=== PATIENT | female | born 1955 | race Caucasian/White ===

== ENCOUNTER 2018-04-01 11:46 | Day surgery (SDC) | payer OTHER ==
[2018-04-01] MEDS ORDERED: Ringers Lactate 1,000 ML IV ONE (12:10)
[2018-04-01] MEDS ORDERED: FENTANYL CITR 100 MCG/2 ML ONE (13:43)
[2018-04-01] MEDS ORDERED: PROPOFOL 200 MG/20 ML VIAL IV ONE ×3 (13:43→14:25)
[2018-04-01] MEDS ORDERED: MIDAZOLAM HCL 2 MG/2 ML INJ ONE (13:44)
[2018-04-01] MEDS ORDERED: LIDOCAINE 2% MPF 5 ML VIAL ONE (13:45)
[2018-04-01] MEDS ORDERED: ONDANSETRON 4 MG/2 ML VIAL ONE (13:45)
[2018-04-01] MEDS ORDERED: NA CHLORIDE 0.9% 2,000 ML ONE (13:51)
[2018-04-01] MEDS ORDERED: LIDOCAINE 1% W/EPI 1:100,000 MDV 50 ML VIAL ONE (13:53)
[2018-04-01] MEDS ORDERED: KETOROLAC 30 MG/ML INJ ONE (14:34)
[2018-04-01 15:08] VITALS: BP 122/63; TEMP 98; O2SAT 100
--- NOTE | 2018-04-02 01:32 | OP ---
Date of Procedure: 04/01/2018 Surgeon: Tara Carrera MD Preoperative Diagnoses: 1.The patient is status post ablation and 2 prior C-sections. 2.Postmenopausal bleeding. Postoperative Diagnoses: 1.The patient is status post ablation and 2 prior C-sections. 2.Postmenopausal bleeding. Procedures Performed: Exam under anesthesia, Pap smear, and hysteroscopy, and D and C. Anesthesia: MAC plus paracervical block. Complications: No complications. Drains: No drains. Condition: The patient's condition is stable. Specimens: Pap smear and endometrial curettings, very scant. Indications: The patient was consented, taken back to the OR, placed in a supine fashion on the oper ating table. After MAC was given, she was placed in dorsal lithotomy position using Umesh stirrups. A speculum was placed to expose the cervix. Pap smear was done and collected. The rest of the vagi na was examined carefully. No evidence of any lesions, bleeding on visual exam or palpation. Anterior lip was injected with 1% lidocaine mixed with 1:100,000 epinephrine, 10 mL was given here an d anterior lip grasped with 2 Allis clamps. Cervix at the external os opened up with the help of a h emostat then direct hysteroscopy with a SlimLine hysteroscope, 30-degree lens and normal saline were used. After passing through the cervical canal at the top, there were adhesions and these were caref ully traversed leading into the uterine cavity. The cavity appeared to be very narrowed. 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 Curettings were performed and they were handed off for permanent pathology. No complications or drains. The patient's condition was stable. She was recovered from anesthesia in the OR and taken to PACU in stable condition. Instrument, needle, a nd sponge counts were correct. SK/MODL Voice ID: [id number] Report ID: [id number]
--- OUTSIDE RECORDS SUMMARY | 2018-04-02 17:15 | XMS REPORT | Clinical Summary ---
:1955 Author Organization [facility] Address [address] [place] [address] Care Team Providers Name Role Phone Rosalio Levin MD Primary Care Provider Allergies Active Allergy Reactions Severity Noted Date Comments Morphine Hives 05/23/2016 Medications Medication Sig Dispensed Refills Start Date End Date Status spironolactone Take 25 mg by 0 Active (ALDACTONE) 25 MG tablet mouth daily. metoprolol tartrate Take 25 mg by 0 Active (LOPRESSOR) 25 mg tablet mouth 2 (two) times a day. Active Problems Problem Noted Date Impingement syndrome of right shoulder 05/23/2016 Primary osteoarthritis of left knee 05/23/2016 Family History Medical History Relation Name Comments Glaucoma Father Heart disease Mother Relation Name Status Comments Father Mother Social History Tobacco Use Types Packs/Day Years Used Date Never Smoker Smokeless Tobacco: Never Used Alcohol Use Drinks/Week oz/Week Comments Yes Sex Assigned at Date Recorded Not on file Job Start Date Occupation Industry Not on file Not on file Not on file Travel History Travel Start Travel End No recent travel history available. Last Filed Vital Signs Not on file Plan of Treatment Health Maintenance Due Date Last Done Comments CERVICAL CANCER SCREENING 1977 BREAST CANCER SCREENING 2006 COLON CANCER SCREENING 2006 SHINGLES VACCINES (1 of 2) 2006 INFLUENZA VACCINE 11/11/2017 Results Not on fileafter 03/31/2017 Insurance Payer Benefit Plan / Group Subscriber ID Type Phone Address AETNA AETNA HMO,POS,EPO, MC/EC xxxxxxxxx HMO Advance Directives Patient has advance care planning documents on file. For more information, please contact:Juan Pruitt[address] [place] [address]
--- OUTSIDE RECORDS SUMMARY | 2018-04-02 17:15 | XMS REPORT ---
:1955 Author Organization [facility] Address [address] [place] [address] Care Team Providers Name Role Phone Unavailable Unavailable Unavailable Payers Payer Name Policy Type Policy Number Effective Date Expiration Date Problems This patient has no known problems. Allergies, Adverse Reactions, Alerts Allergy Allergy Status Severity Reaction(s) Onset Inactive Treating Comments Name Type Date Date Clinician flaxseed DA Active U 2018-01 00:00:0 0 morphine DA Active U 2018-01 00:00:0 0 No Known DA Active U 2005-08 Contrast - Allergies 00:00:0 0 No Known DA Active U 2005-08 Food -25 Allergies 00:00:0 0 No Known DA Active U 2005-08 Other -25 Allergies 00:00:0 0 PARLODEL DA Active U 2005-08 00:00:0 0 Medications This patient has no known medications.
== END 2018-04-01 15:39 | disposition home or self-care (01) ==
LOC: OR 11:46
PROVIDERS: ATTEND Obstetrics & Gynecology
PROC: 0UJD8ZZ Inspection of Uterus and Cervix, Via Natural or Artificial Opening Endoscopic (ICD-10-PCS; 2018-04-01)
PROC: 0UDB7ZX Extraction of Endometrium, Via Natural or Artificial Opening, Diagnostic (ICD-10-PCS; principal; 2018-04-01 12:00)
DX: N95.0 Postmenopausal bleeding (principal); N76.1 Subacute and chronic vaginitis; I10 Essential (primary) hypertension; G47.30 Sleep apnea, unspecified; M19.90 Unspecified osteoarthritis, unspecified site; M06.9 Rheumatoid arthritis, unspecified; Z79.899 Other long term (current) drug therapy
CPT/HCPCS: 88142; 88305; J2250; J2405; J2704; J3010; J7030

== ENCOUNTER 2018-04-20 19:18 | Emergency (ER) | payer OTHER ==
--- OUTSIDE RECORDS SUMMARY | 2018-04-20 19:19 | XMS REPORT ---
:1955 Author Organization [facility] Address [address] [place] [address] Care Team Providers Name Role Phone Unavailable [...]
--- OUTSIDE RECORDS SUMMARY | 2018-04-20 19:19 | XMS REPORT | Clinical Summary ---
:1955 Author Organization [facility] Address [address] [place] [address] Care Team Providers Name Role Phone Rosalio [...] INFLUENZA VACCINE 11/11/2017 Results Not on fileafter 04/19/2017 Insurance Payer Benefit Plan / Group Subscriber ID Type Phone Address AETNA AETNA HMO,POS,EPO, MC/EC xxxxxxxxx HMO Advance Directives Patient has advance care planning documents on file. For more information, please contact:Juan Pruitt[address] [facility] [address]
[2018-04-20] MEDS ORDERED: ACETAMINOPHEN 500 MG TAB ONE (20:09)
[2018-04-20] MEDS ORDERED: CEFTRIAXONE 1000 MG/VIAL ONE (20:50)
[2018-04-20] MEDS ORDERED: NA CHLORIDE 0.9% 2,000 ML ONE (20:50)
[2018-04-20] MEDS ORDERED: NA CHLORIDE 0.9% 50 ML IV ONE (20:51)
[2018-04-20 20:56] LABS: Urine Bacteria <20 /HPF (<20); Urine Culture Reflex Order REFLEXED; Urine Mucus 1+ /HPF (NONE SEEN)
[2018-04-20 20:57] LABS: Urine Blood 1+ (NEG); Urine Glucose NEGATIVE (NEG); Urine Protein NEGATIVE (NEG); Urine pH 7.5 (5.0-7.0)
--- NOTE | 2018-04-20 21:20 | RAD REPORT ---
EXAM DESCRIPTION: Cesar Cabello (2 Views)04/20/2018 9:06 pm CLINICAL HISTORY: Cough COMPARISON: 2012 FINDINGS: The lungs appear clear of acute infiltrate. The heart is normal size IMPRESSION: No acute abnormalities displayed
[2018-04-20 21:23] LABS: Absolute Monocytes 0.8 K/uL (0.1-1.3); Absolute Neutrophil 6.5 K/uL (1.8-8.0); Basophils % 0.3 % (0-1.3); Eosinophils % 0.3 % (0-4.4); Hematocrit 32.6 % (36.0-45.0); MPV 8.6 fL (7.6-11.3); Monocytes % 9.7 % (3.3-12.3)
[2018-04-20 21:30] LABS: Protime INR 1.12
[2018-04-20] MEDS ORDERED: levoFLOXacin 500 MG TAB ONE (21:33)
[2018-04-20 21:34] LABS: ALT/SGPT 17 U/L (12-78); AST/SGOT 8 U/L (15-37); Albumin 3.1 g/dL (3.4-5.0); Alkaline Phosphatase 66 U/L (45-117); BUN Blood Urea Nitrogen 14 mg/dL (7-18); Bicarbonate 26 mmol/L (21-32); Bilirubin Direct 0.1 mg/dL (0-0.2); Bilirubin Total 0.4 mg/dL (0.2-1.0); Glucose Level 112 mg/dL (74-106); Magnesium 1.7 mg/dL (1.8-2.4); NT PRO-BNP 128 pg/mL (<125); Protein, Total 6.8 g/dL (6.4-8.2); Sodium Level 138 mmol/L (136-145); Troponin (Emerg Dept Use Only) < 0.02 ng/mL (0.0-0.045)
--- NOTE | 2018-04-20 22:05 | RAD REPORT ---
EXAM DESCRIPTION: CT - Stone Protocol - 04/20/2018 9:54 pm CLINICAL HISTORY: Abdominal pain. Flank pain COMPARISON: 2013 TECHNIQUE: Computed axial tomography of the abdomen pelvis was obtained without oral or IV contrast. Lack of IV and oral contrast limits evaluation of solid organs, bowel, and vessels. Coronal reformat vinod images were obtained and reviewed. All CT scans are performed using dose optimization technique as appropriate and may include automated exposure control or mA/KV adjustment according to patient size. FINDINGS: A renal calculus is not seen. An ureteral calculus is not noted. A bladder calculus is not present. Parapelvic renal cysts are present bilaterally The liver, spleen, pancreas and adrenals appear grossly normal There is no evidence of diverticulitis. Moderate amount of stool is present within the colon. Small umbilical hernia IMPRESSION: Negative for a genitourinary calculus Moderate amount of stool within the colon
[2018-04-20] MEDS ORDERED: MAGNESIUM SULFATE 1 gm IVPB 1 GM/100 ML BAG IV ONE (22:06)
--- NOTE | 2018-04-20 22:21 | EDPHYS ---
Physician Documentation [facility] Name: Keyla Maravilla Age: 62 yrs Sex: Female : 1955 Arrival Date: 04/20/2018 Time: 19:21 Bed 20 Private MD: Rosalio Levin V ED Physician Alpesh Felix HPI: 04/20 20:19 This 62 yrs old Female presents to ER via Ambulatory with complaints of Fever.adrien 20:19 The patient reports fever, that was measured at 104 degrees Fahrenheit. Onset: The adrien symptoms/episode began/occurred today. Modifying factors: there are no obvious modifying factors. Associated signs and symptoms: Pertinent positives: arthralgias, chills, dysuria. Severity of symptoms: At their worst the symptoms were moderate in the emergency department the symptoms are unchanged. The patient has not experienced similar symptoms in the past. Historical: - Allergies: 19:36 Parlodel; jd3 19:36 Morphine; jd3 - Home Meds: 19:36 spironolactone Oral [Active]; jd3 - PMHx: 19:36 prehypertension; jd3 - PSHx: 19:36 Appendectomy; Cholecystectomy; Uterine ablation; ; left Wrist; right rotator jd3 cuff; - Immunization history:: Adult Immunizations up to date, Flu vaccine is up to date. - Social history:: Smoking status: Patient/guardian denies using tobacco. - Ebola Screening: : Patient negative for fever greater than or equal to 101.5 degrees Fahrenheit, and additional compatible Ebola Virus Disease symptoms. - Family history:: not pertinent. ROS: 20:19 Eyes: Negative for injury, pain, redness, and discharge, ENT: Negative for injury, adrien pain, and discharge, Neck: Negative for injury, pain, and swelling, Cardiovascular: Negative for chest pain, palpitations, and edema, Respiratory: Negative for shortness of breath, cough, wheezing, and pleuritic chest pain, Abdomen/GI: Negative for abdominal pain, nausea, vomiting, diarrhea, and constipation, Back: Negative for injury and pain, MS/Extremity: Negative for injury and deformity, Skin: Negative for injury, rash, and discoloration, Neuro: Negative for headache, weakness, numbness, tingling, and seizure, Psych: Negative for depression, anxiety, suicide ideation, homicidal ideation, and hallucinations, Allergy/Immunology: Negative for hives, rash, and allergies, Endocrine: Negative for neck swelling, polydipsia, polyuria, polyphagia, and marked weight changes, Hematologic/Lymphatic: Negative for swollen nodes, abnormal bleeding, and unusual bruising. 20:19 Constitutional: Positive for body aches, chills, fever, malaise. 20:19 : Positive for urinary frequency, small amounts. Exam: 20:19 Head/Face: Normocephalic, atraumatic. Eyes: Pupils equal round and reactive to light, adrien extra-ocular motions intact. Lids and lashes normal. Conjunctiva and sclera are non-icteric and not injected. Cornea within normal limits. Periorbital areas with no swelling, redness, or edema. ENT: Nares patent. No nasal discharge, no septal abnormalities noted. Tympanic membranes are normal and external auditory canals are clear. Oropharynx with no redness, swelling, or masses, exudates, or evidence of obstruction, uvula midline. Mucous membranes moist. Neck: Trachea midline, no thyromegaly or masses palpated, and no cervical lymphadenopathy. Supple, full range of motion without nuchal rigidity, or vertebral point tenderness. No Meningismus. Chest/axilla: Normal chest wall appearance and motion. Nontender with no deformity. No lesions are appreciated. Cardiovascular: Regular rate and rhythm with a normal S1 and S2. No gallops, murmurs, or rubs. Normal PMI, no JVD. No pulse deficits. Respiratory: Lungs have equal breath sounds bilaterally, clear to auscultation and percussion. No rales, rhonchi or wheezes noted. No increased work of breathing, no retractions or nasal flaring. Abdomen/GI: Soft, non-tender, with normal bowel sounds. No distension or tympany. No guarding or rebound. No evidence of tenderness throughout. Back: No spinal tenderness. No costovertebral tenderness. Full range of motion. Female : Normal external genitalia. Skin: Warm, dry with normal turgor. Normal color with no rashes, no lesions, and no evidence of cellulitis. MS/ Extremity: Pulses equal, no cyanosis. Neurovascular intact. Full, normal range of motion. Neuro: Awake and alert, GCS 15, oriented to person, place, time, and situation. Cranial nerves II-XII grossly intact. Motor strength 5/5 in all extremities. Sensory grossly intact. Cerebellar exam normal. Normal gait. Psych: Awake, alert, with orientation to person, place and time. Behavior, mood, and affect are within normal limits. 20:19 Cardiovascular: Rate: tachycardic, Rhythm: regular, Pulses: Pulses are 4+ in bilateral radial, brachial, femoral, popliteal, posterior tibial and and dorsalis pedis arteries.. Heart sounds: normal, Edema: is not appreciated, JVD: is not appreciated. 20:19 Back: pain, is absent, ROM is normal, normal spinal alignment noted, CVA tenderness, is absent. Vital Signs: 19:36 BP 134 / 56; Pulse 126; Resp 19 S; Temp 103(O); Pulse Ox 97% on R/A; Weight 111.58 kg jd3 (R); Height 5 ft. 3 in. (160.02 cm) (R); Pain 1/10; 19:43 Pulse 114; Pulse Ox 96% on R/A; ak1 21:22 BP 113 / 67; Pulse 95; Resp 18; Temp 100.0(O); Pulse Ox 96% on R/A; Pain 0/10; ak1 22:27 BP 104 / 56; Pulse 91; Resp 16; Temp 99.6(O); Pulse Ox 96% on R/A; Pain 0/10; ak1 19:36 Body Mass Index 43.58 (111.58 kg, 160.02 cm) jd3 MDM: 19:42 Patient medically screened. [facility] 20:21 Data reviewed: vital signs, nurses notes, lab test result(s), EKG, radiologic studies, [facility] plain films. 04/20 19:43 Order name: Flu; Complete Time: 21:22 [facility] 04/20 19:51 Order name: Urine Culture [facility] 04/20 19:57 Order name: Urine Microscopic Only; Complete Time: 21:10 [facility] 04/20 20:18 Order name: Basic Metabolic Panel; Complete Time: 21:36 [facility] 04/20 20:18 Order name: CBC with Diff; Complete Time: 21:36 [facility] 04/20 20:18 Order name: LFT's; Complete Time: 21:36 [facility] 04/20 20:18 Order name: Magnesium; Complete Time: 21:36 [facility] 04/20 20:18 Order name: NT PRO-BNP; Complete Time: 21:36 [facility] 04/20 20:18 Order name: PT-INR; Complete Time: 21:36 [facility] 04/20 20:18 Order name: Troponin (emerg Dept Use Only); Complete Time: 21:36 [facility] 04/20 20:18 Order name: Blood Culture Adult (2) [facility] 04/20 20:18 Order name: Procalcitonin; Complete Time: 22:05 [facility] 04/20 20:22 Order name: Chest Pa And Lat (2 Views) XRAY; Complete Time: 21:36 [facility] 04/20 20:32 Order name: Urine Dipstick--Ancillary (enter results); Complete Time: 21:10 [facility] 04/20 19:51 Order name: Urine Dipstick-Ancillary (obtain specimen); Complete Time: 19:57 [facility] 04/20 20:18 Order name: EKG; Complete Time: 20:19 [facility] 04/20 20:18 Order name: Cardiac monitoring; Complete Time: 20:38 [facility] 04/20 20:18 Order name: EKG - Nurse/Tech; Complete Time: 21:33 [facility] 04/20 20:18 Order name: IV Saline Lock; Complete Time: 21:21 [facility] 04/20 20:18 Order name: Labs collected and sent; Complete Time: 21:21 [facility] 04/20 20:18 Order name: O2 Per Protocol; Complete Time: 20:38 [facility] 04/20 20:18 Order name: O2 Sat Monitoring; Complete Time: 20:38 [facility] 04/20 21:11 Order name: CT Stone Protocol; Complete Time: 22:20 [facility] Administered Medications: 20:05 Drug: Tylenol 1000 mg Route: PO; ak1 20:38 Follow up: Response: No adverse reaction ak1 21:10 Drug: NS 0.9% 1000 ml Route: IV; Rate: 1 bolus; Site: left antecubital; ak1 23:09 Follow up: IV Status: Completed infusion; IV Intake: 1000ml ak1 21:10 Drug: Rocephin - (cefTRIAXone) 1 grams Route: IVPB; Infused Over: 30 mins; Site: left ak1 antecubital; 21:29 Follow up: IV Status: Completed infusion; IV Intake: 50ml ak1 21:10 Drug: NS 0.9% 1000 ml Route: IV; Rate: 1 bolus; Site: left antecubital; ak1 23:09 Follow up: IV Status: Completed infusion; IV Intake: 1000ml ak1 21:41 Drug: LevOfloxacin 750 mg Route: PO; ak1 21:41 Follow up: Response: No adverse reaction ak1 22:00 Drug: Magnesium Sulfate 1 grams Route: IVPB; Infused Over: 1 hrs; Site: left [facility] antecubital; 23:10 Follow up: IV Status: Completed infusion; IV Intake: 100ml [facility] Disposition: 04/20/18 22:21 Discharged to Home. Impression: Fever, unspecified, Cystitis, Hypomagnesemia, Anemia, unspecified. - Condition is Stable. - Discharge Instructions: Dysuria, Fever, Adult, Hypomagnesemia, Fever, Adult, [id number]. - Prescriptions for Levaquin 500 mg Oral Tablet - take 1 tablet by ORAL route once daily for 7 days; 7 tablet. Bactrim DS 800- 160 mg Oral Tablet - take 1 tablet by ORAL route every 12 hours for 3 days; 6 tablet. - Medication Reconciliation Form, Thank You Letter, Antibiotic Education, Prescription Opioid Use form. - Follow up: Rosalio Levin; When: 2 - 3 days; Reason: Recheck today's complaints, Continuance of care, Re-evaluation by your physician. - Problem is new. - Symptoms have improved. Signatures: Dispatcher [employer] EDAlpesh Orellana MD MD cha Krenek, Amber RN RN ak1 Angel Macario RN RN jd3 Corrections: (The following items were deleted from the chart) 23:19 22:21 04/20/2018 22:21 Discharged to Home. Impression: Fever, unspecified; Cystitis; ak1 Hypomagnesemia; Anemia, unspecified. Condition is Stable. Discharge Instructions: Dysuria, Fever, Adult, Fever, Adult, [id number], Hypomagnesemia. Prescriptions for Levaquin 500 mg Oral Tablet - take 1 tablet by ORAL route once daily for 7 days; 7 tablet, Bactrim DS 800-160 mg Oral Tablet - take 1 tablet by ORAL route every 12 hours for 3 days; 6 tablet. and Forms are Medication Reconciliation Form, Thank You Letter, Antibiotic Education, Prescription Opioid Use. Follow up: Rosalio Levin; When: 2 - 3 days; Reason: Recheck today's complaints, Continuance of care, Re-evaluation by your physician. Problem is new. Symptoms have improved. adrien
--- NOTE | 2018-04-20 22:21 | ER ---
Nurse's Notes [facility] Name: Keyla Maravilla Age: 62 yrs Sex: Female : 1955 Arrival Date: 04/20/2018 Time: 19:21 Bed 20 Private MD: Rosalio Levin V Diagnosis: Fever, unspecified;Cystitis;Hypomagnesemia;Anemia, unspecified Presentation: 04/20 19:32 Presenting complaint: Patient states: "I had a 104 fever today as well as some jd3 weakness. I had right rotator cuff sx about 3 months ago, but recently I have been having urinary frequency.". Transition of care: patient was not received from another setting of care. Onset of symptoms was April 20, 2018. Risk Assessment: Do you want to hurt yourself or someone else? Patient reports no desire to harm self or others. Initial Sepsis Screen: Does the patient meet any 2 criteria? Temp <36.0*C (96.8*F)) or > 38.3*C (100.9*F). HR > 90 bpm. Yes Does the patient have a suspected source of infection? No. Patient's initial sepsis screen is negative. Care prior to arrival: None. 19:32 Method Of Arrival: Ambulatory [facility] 19:32 Acuity: RC 3 jd3 Triage Assessment: 20:02 General: Appears in no apparent distress. Behavior is calm, cooperative. Pain: Denies ak1 pain. EENT: Reports nasal congestion. Neuro: No deficits noted. Cardiovascular: Rhythm is sinus tachycardia. Respiratory: No deficits noted. GI: No signs and/or symptoms were reported involving the gastrointestinal system. : Reports urinary frequency. Derm: Reports fever. Musculoskeletal: No signs and/or symptoms reported regarding the musculoskeletal system. Historical: - Allergies: 19:36 Parlodel; jd3 19:36 Morphine; jd3 - Home Meds: 19:36 spironolactone Oral [Active]; jd3 - PMHx: 19:36 prehypertension; jd3 - PSHx: 19:36 Appendectomy; Cholecystectomy; Uterine ablation; ; left Wrist; right rotator jd3 cuff; - Immunization history:: Adult Immunizations up to date, Flu vaccine is up to date. - Social history:: Smoking status: Patient/guardian denies using tobacco. - Ebola Screening: : Patient negative for fever greater than or equal to 101.5 degrees Fahrenheit, and additional compatible Ebola Virus Disease symptoms. - Family history:: not pertinent. Screenin:44 Abuse screen: Denies threats or abuse. Denies injuries from another. Nutritional ak1 screening: No deficits noted. Tuberculosis screening: No symptoms or risk factors identified. Fall Risk None identified. Assessment: 20:05 Reassessment: Patient appears in no apparent distress at this time. No changes from ak1 previously documented assessment. Patient is alert, oriented x 3, equal unlabored respirations, skin warm/dry/pink. see triage assessment. 21:24 Reassessment: Patient appears in no apparent distress at this time. No changes from ak1 previously documented assessment. Patient and/or family updated on plan of care and expected duration. Pain level reassessed. Patient is alert, oriented x 3, equal unlabored respirations, skin warm/dry/pink. Patient states feeling better. Patient states symptoms have improved. 22:27 Reassessment: Patient appears in no apparent distress at this time. No changes from ak1 previously documented assessment. Patient and/or family updated on plan of care and expected duration. Pain level reassessed. Patient is alert, oriented x 3, equal unlabored respirations, skin warm/dry/pink. pt and family informed of wait for fluids and IV Magnesium to be completed prior to discharge. Patient denies pain at this time. Patient states feeling better. Patient states symptoms have improved. 23:10 Reassessment: Patient appears in no apparent distress at this time. No changes from ak1 previously documented assessment. Patient and/or family updated on plan of care and expected duration. Pain level reassessed. Patient is alert, oriented x 3, equal unlabored respirations, skin warm/dry/pink. Patient denies pain at this time. Patient states feeling better. Patient states symptoms have improved. Vital Signs: 19:36 BP 134 / 56; Pulse 126; Resp 19 S; Temp 103(O); Pulse Ox 97% on R/A; Weight 111.58 kg jd3 (R); Height 5 ft. 3 in. (160.02 cm) (R); Pain 04/22; 19:43 Pulse 114; Pulse Ox 96% on R/A; ak1 21:22 BP 113 / 67; Pulse 95; Resp 18; Temp 100.0(O); Pulse Ox 96% on R/A; Pain 0/10; ak1 22:27 BP 104 / 56; Pulse 91; Resp 16; Temp 99.6(O); Pulse Ox 96% on R/A; Pain 0/10; ak1 19:36 Body Mass Index 43.58 (111.58 kg, 160.02 cm) jd3 ED Course: 19:21 Patient arrived in ED. es 19:21 Rosalio Levin MD is Private Physician. es 19:26 Yuliya Valdivia, RN is Primary Nurse. ak1 19:34 Triage completed. jd3 19:37 Arm band placed on. jd3 19:42 Alpesh Felix MD is Attending Physician. adrien 21:03 Chest Pa And Lat (2 Views) XRAY In Process Unspecified. EDMS 21:16 chip bin operator on. Pulse ox on. NIBP on. ag4 21:16 Inserted saline lock: 20 gauge in left antecubital area, using aseptic technique. Blood ag4 collected. 21:[address] nj 21:22 Patient has correct armband on for positive identification. Placed in gown. Bed in low ak1 position. Call light in reach. Side rails up X2. Adult w/ patient. 21:35 EKG done, by ED staff. ag4 21:54 CT Stone Protocol In Process Unspecified. EDMS 21:54 CT completed. Patient tolerated procedure well. Patient moved back from [place]. nj 22:21 Rosalio Levin MD is Referral Physician. adrien 22:28 No provider procedures requiring assistance completed. ak1 23:12 IV discontinued, intact, bleeding controlled, No redness/swelling at site. Pressure ak1 dressing applied. Administered Medications: 20:05 Drug: Tylenol 1000 mg Route: PO; ak1 20:38 Follow up: Response: No adverse reaction ak1 21:10 Drug: NS 0.9% 1000 ml Route: IV; Rate: 1 bolus; Site: left antecubital; ak1 23:09 Follow up: IV Status: Completed infusion; IV Intake: 1000ml ak1 21:10 Drug: Rocephin - (cefTRIAXone) 1 grams Route: IVPB; Infused Over: 30 mins; Site: left ak1 antecubital; 21:29 Follow up: IV Status: Completed infusion; IV Intake: 50ml ak1 21:10 Drug: NS 0.9% 1000 ml Route: IV; Rate: 1 bolus; Site: left antecubital; ak1 23:09 Follow up: IV Status: Completed infusion; IV Intake: 1000ml ak1 :41 Drug: LevOfloxacin 750 mg Route: PO; ak1 :41 Follow up: Response: No adverse reaction ak1 22:00 Drug: Magnesium Sulfate 1 grams Route: IVPB; Infused Over: 1 hrs; Site: left ak1 antecubital; 23:10 Follow up: IV Status: Completed infusion; IV Intake: 100ml ak1 Intake: 21:29 IV: 50ml; Total: 50ml. ak1 23:09 IV: 1000ml; Total: 1050ml. ak1 23:09 IV: 1000ml; Total: 2050ml. ak1 23:10 IV: 100ml; Total: 2150ml. ak1 Outcome: 22:21 Discharge ordered by . adrien 22:28 Condition: improved ak1 23:12 Discharged to home ambulatory, with family. ak1 23:12 Discharge instructions given to patient, Instructed on discharge instructions, follow up and referral plans. no drinking with medication, no driving heavy equipment, medication usage, Demonstrated understanding of instructions, follow-up care, medications, Prescriptions given X 2. 23:19 Patient left the ED. ak1 Signatures: Dispatcher [employer] Alpesh Hewitt MD MD cha Salyer, Yuliya Salas RN RN ak1 Ray Arthur Jonathon, RN RN jd3 Guzman, Bunny [email or web address]
[2018-04-20 23:32] VITALS: O2SAT 96
[2018-04-20 23:35] VITALS: BP 104/56; TEMP 99.6
--- NOTE | 2018-04-21 07:15 | EKG ---
Test Date: 2018-04-20 Test Time: 21:29:16 Sap Mobility Architect: [email or web address] MEASUREMENT RESULTS: Intervals: Rate: 96 WV: 154 QRSD: 66 QT: 342 QTc: 432 [place]: P: 69 WV: 154 QRS: 66 T: 23 INTERPRETIVE STATEMENTS: Normal sinus rhythm Nonspecific ST abnormality Abnormal ECG Compared to ECG 11/09/2013 20:20:11 ST (T wave) deviation now present Sinus bradycardia no longer present Electronically Signed On 04-21-18 07:14:47 SOAKING PIT OPERATOR by Rodo Dumont
== END 2018-04-20 23:19 | disposition home or self-care (01) ==
LOC: ER 19:18
DX: N30.90 Cystitis, unspecified without hematuria (principal); E83.42 Hypomagnesemia; D64.9 Anemia, unspecified; R94.31 Abnormal electrocardiogram [ECG] [EKG]
CPT/HCPCS: 36415; 71046; 74176; 76377; 80048; 80076; 81003; 81015; 83735; 83880; 84145; 84484; 85025; 85610; 87040; 87086; 87088; 87804; 93005; 96361; 96365; 96367; 99285; J3475; J7030

== ENCOUNTER → 2023-06-04 | Emergency (ER) | payer OTHER ==
[~2023-06-04] MED LIST: DIPHENHYDRAMINE 50 MG/ML VIAL ONE; KETOROLAC 30 MG/ML INJ ONE; METOCLOPRAMIDE 10 MG/2mL INJ ONE; NA CHLORIDE 0.9% 500 ML ONE
--- NOTE | 2023-06-04 22:37 | RAD REPORT ---
EXAM DESCRIPTION: Jackt Single View06/04/2023 10:28 pm CLINICAL HISTORY: vomiting COMPARISON: Chest Pa And Lat (2 Views) dated 04/20/2018; CHEST SINGLE VIEW dated 01/12/2012; CHEST PA A ND LAT 2 VIEW dated 11/22/2007; CHEST PA AND LAT 2 VIEW dated 07/24/2006 TECHNIQUE: Portable AP view of the chest. FINDINGS: The lungs are clear. No pneumothorax or effusion. The cardiomediastinal contours are unre markable. IMPRESSION: No acute cardiopulmonary process.
[2023-06-04 23:06] LABS: Absolute Lymphocytes (CBC) 0.9 K/uL (0.7-4.9); Hematocrit 38.4 % (36.0-45.0); Lymphocytes % 9.2 % (15.3-44.8); MCV 82.6 fL (80-100); MPV 7.9 fL (7.6-11.3); Platelets 258 thou/uL (152-406); RBC Red Blood Cell Count 4.65 M/uL (3.86-4.86)
[2023-06-04 23:14] LABS: Protime INR 1.12
[2023-06-04 23:28] LABS: Albumin 3.3 g/dL (3.4-5.0); Bilirubin Direct 0.2 mg/dL (0-0.2); Bilirubin Indirect, Calculated 0.4 mg/dL (0.2-0.8); Bilirubin Total 0.6 mg/dL (0.2-1.0); Magnesium 1.9 mg/dL (1.6-2.4); Potassium 3.6 mEq/L (3.5-5.1)
[2023-06-04 23:31] LABS: Troponin High Sensitivity 4.1 pg/mL (<58.9)
--- NOTE | 2023-06-05 01:24 | ER ---
Nurse's Notes [facility] Name: Keyla Maravilla Age: 67 yrs Sex: Female : 1955 Arrival Date: 06/04/2023 Time: 21:13 Bed 19 Private MD: Diagnosis: Headache;Nausea with vomiting, unspecified;Diarrhea, unspecified Presentation: 06/04 21:21 Chief complaint: Patient states: Pt c/o generalized abdominal pain, vomiting, diarrhea, tl4 and weakness since 1230 today. Pt also c/o recurring headache x 2 days, relief with Tylenol. Coronavirus screen: At this time, the client does not indicate any symptoms associated with coronavirus-19. Ebola Screen: No symptoms or risks identified at this time. Initial Sepsis Screen: Does the patient meet any 2 criteria? No. Patient's initial sepsis screen is negative. Does the patient have a suspected source of infection? No. Patient's initial sepsis screen is negative. Risk Assessment: Do you want to hurt yourself or someone else? Patient reports no desire to harm self or others. Onset of symptoms was June 04, 2023 at 12:30. 21:21 Method Of Arrival: Ambulatory tl4 21:21 Acuity: RC 3 tl4 Triage Assessment: 21:24 General: Appears ill, Behavior is calm, cooperative. Pain: Complains of pain in head tl4 and abdomen. EENT: No deficits noted. No signs and/or symptoms were reported regarding the EENT system. Neuro: Reports headache. Neuro: Reports weakness. Cardiovascular: No deficits noted. Denies chest pain, diaphoresis, palpitations. Respiratory: No deficits noted. Denies cough, shortness of breath. GI: Reports lower abdominal pain, nausea, vomiting. : No deficits noted. No signs and/or symptoms were reported regarding the genitourinary system. Derm: No deficits noted. No signs and/or symptoms reported regarding the dermatologic system. Musculoskeletal: No deficits noted. No signs and/or symptoms reported regarding the musculoskeletal system. Historical: - Allergies: 21:26 Morphine; tl4 21:26 Parlodel; tl4 - Home Meds: 21:26 spironolactone 25 mg oral tablet 1 tab daily [Active]; pantoprazole 40 mg oral tablet, tl4 delayed release (enteric coated) 1 tab daily [Active]; gabapentin 300 mg oral capsule 1 cap 2 times per day [Active]; - PMHx: 21:26 Hypertensive disorder; Ulcer; tl4 - Immunization history:: Adult Immunizations unknown. - Social history:: Smoking status: Patient denies any tobacco usage or history of. Screenin/23 01:38 Abuse screen: Denies threats or abuse. Denies injuries from another. Nutritional ha1 screening: No deficits noted. Tuberculosis screening: No symptoms or risk factors identified. 01:41 [facility] ED Fall Risk Assessment (Adult) History of falling in the last 3 months, ap3 including since admission No falls in past 3 months (0 pts). Assessment: 06/04 23:30 Reassessment: Patient and/or family updated on plan of care and expected duration. Pain ha1 level reassessed. Patient is alert, oriented x 3, equal unlabored respirations, skin warm/dry/pink. Patient states feeling better. Patient states symptoms have improved. 06/05 00:30 Reassessment: Patient and/or family updated on plan of care and expected duration. Pain ha1 level reassessed. Patient is alert, oriented x 3, equal unlabored respirations, skin warm/dry/pink. Patient states feeling better. 01:41 GI: Bowel sounds present X 4 quads. Abd is soft. ap3 Vital Signs: 06/04 21:21 BP 145 / 81; Pulse 75; Resp 18; Temp 98.2; Pulse Ox 100% on R/A; Weight 107.95 kg; tl4 Height 5 ft. 3 in. ; Pain 3/10; 22:01 BP 122 / 53; Pulse 71; Resp 17; Pulse Ox 96% on R/A; ap3 23:10 Pulse 77; Resp 18; Pulse Ox 94% ; ap3 23:23 BP 127 / 68; Pulse 73; Pulse Ox 98% on 2 lpm NC; ap3 06/05 00:39 BP 116 / 68; Pulse 71; Pulse Ox 97% on 2 lpm NC; ap3 01:37 BP 106 / 70; Pulse 71; Resp 17 S; Pulse Ox 97% on R/A; ha1 06/04 21:21 Body Mass Index 42.16 (107.95 kg, 160.02 cm) tl4 06/04 21:21 Pain Scale: Adult tl4 ED Course: 02/22 21:16 Patient arrived in ED. jj6 21:17 Alpesh Soria PA is PHCP. cp 21:17 Alpesh Felix MD is Attending Physician. cp 21:24 Triage completed. tl4 21:24 Arm band placed on left wrist. tl4 21:26 Patient has correct armband on for positive identification. Placed in gown. Bed in low ha1 position. Call light in reach. Side rails up X 1. Adult w/ patient. 21:59 Cassy Carrington, RN is Primary Nurse. ap3 22:20 Inserted saline lock: 22 gauge in right forearm, using aseptic technique. ap3 22:30 XRAY Chest (1 view) In Process Unspecified. EDMS 22:55 Inserted saline lock: 22 gauge in left antecubital area, using aseptic technique. Blood ha1 collected. 23:49 CT Head Brain wo Cont In Process Unspecified. EDMS 02 00:00 CT Abd/Pelvis - IV Contrast Only In Process Unspecified. EDMS 00:26 Primary Nurse role handed off by Cassy Carrington, LEROY ap3 00:39 Cassy Carrington, RN is Primary Nurse. ap3 01:38 No provider procedures requiring assistance completed. ha1 01:39 Provided Education on: medication administration and follow ups. ha1 01:41 IV discontinued, intact, bleeding controlled, No redness/swelling at site. Pressure ap3 dressing applied. Administered Medications: 06/04 22:43 Drug: metoCLOPramide IVP 10 mg IVP once; over 1 to 2 minutes Route: IVP; Site: right ap3 forearm; 06/05 01:00 Follow up: Response: No adverse reaction ap3 06/04 22:43 Drug: diphenhydrAMINE IVP 25 mg IVP once Route: IVP; Site: right forearm; ap3 06/05 01:00 Follow up: Response: No adverse reaction ap3 06/04 22:43 Drug: NS 0.9% IV 500 ml IV at 250 ml/hr once Route: IV; Rate: 250 ml/hr; Site: right ap3 forearm; 06/05 01:00 Follow up: IV Status: Completed infusion; IV Intake: 500ml ap3 06/04 22:43 Drug: Ketorolac IVP 10 mg 10 mg IVP once Route: IVP; Site: right antecubital; ap3 06/05 01:00 Follow up: Response: No adverse reaction; Pain is decreased ap3 Medication: 01:38 VIS not applicable for this client. ha1 Intake: 01:00 IV: 500ml; Total: 500ml. ap3 Outcome: 01:24 Discharge ordered by . cp 01:40 Discharged to home ambulatory, with family, ap3 01:40 Condition: good 01:40 Discharge instructions given to patient, family, Instructed on discharge instructions, follow up and referral plans. medication usage, Demonstrated understanding of instructions, follow-up care, medications, Prescriptions given X 1, 01:41 Patient left the ED. ap3 Signatures: Dispatcher [employer] EDMS Alpesh Soria PA PA cp Prokisch, Amanda RN RN ap3 Chloe Wright jj6 Nery Britt RN RN ha1 Ten Chambers RN RN tl4 Corrections: (The following items were deleted from the chart) 06/04 21:30 21:26 PMHx: prehypertension; tl4 tl4
--- NOTE | 2023-06-05 01:24 | EDPHYS ---
Physician Documentation [facility] Name: Keyla Maravilla Age: 67 yrs Sex: Female : 1955 Arrival Date: 06/04/2023 Time: 21:13 Bed 19 Private MD: ED Physician Alpesh Felix HPI: 06/04 22:15 This 67 yrs old Female presents to ER via Ambulatory with complaints of Abdominal Pain, cp Nausea/Vomiting/Diarrhea. 22:15 The patient presents with abdominal pain. cp 22:15 Onset: The symptoms/episode began/occurred today. cp 22:15 The patient complains of pain to the back of head and neck. Onset: The symptoms/episode cp began/occurred 2 day(s) ago. Historical: - Allergies: 21:26 Morphine; tl4 21:26 Parlodel; tl4 - Home Meds: 21:26 spironolactone 25 mg oral tablet 1 tab daily [Active]; pantoprazole 40 mg oral tablet, tl4 delayed release (enteric coated) 1 tab daily [Active]; gabapentin 300 mg oral capsule 1 cap 2 times per day [Active]; - PMHx: 21:26 Hypertensive disorder; Ulcer; tl4 - Immunization history:: Adult Immunizations unknown. - Social history:: Smoking status: Patient denies any tobacco usage or history of. ROS: 22:20 Constitutional: Negative for body aches, chills, fever, poor PO intake, cp 22:20 Cardiovascular: Negative for chest pain, edema, palpitations, cp 22:20 Respiratory: Negative for cough, shortness of breath, wheezing, 22:20 Abdomen/GI: Positive for abdominal pain, nausea and vomiting, loose stools, Negative for constipation, Vital Signs: 21:21 BP 145 / 81; Pulse 75; Resp 18; Temp 98.2; Pulse Ox 100% on R/A; Weight 107.95 kg; tl4 Height 5 ft. 3 in. ; Pain 3/10; 22:01 BP 122 / 53; Pulse 71; Resp 17; Pulse Ox 96% on R/A; ap3 23:10 Pulse 77; Resp 18; Pulse Ox 94% ; ap3 23:23 BP 127 / 68; Pulse 73; Pulse Ox 98% on 2 lpm NC; ap3 06/05 00:39 BP 116 / 68; Pulse 71; Pulse Ox 97% on 2 lpm NC; ap3 01:37 BP 106 / 70; Pulse 71; Resp 17 S; Pulse Ox 97% on R/A; ha1 06/04 21:21 Body Mass Index 42.16 (107.95 kg, 160.02 cm) tl4 06/04 21:21 Pain Scale: Adult tl4 MDM: 06/04 21:30 Patient medically screened. adrien 06/04 22:05 Order name: Basic Metabolic Panel; Complete Time: 23:37 cp 06/04 23:38 Interpretation: Normal except: GLUC 111; BUN 21; CRE 1.16; GFR 52. cp 06/04 22:05 Order name: CBC with Diff; Complete Time: 23:37 cp 06/04 23:38 Interpretation: Normal except: RDW 15.5; ANNE% 86.8; LYM% 9.2. cp 06/04 22:05 Order name: LFT's; Complete Time: 23:37 cp 06/04 22:05 Order name: Magnesium; Complete Time: 23:37 cp 06/04 22:05 Order name: PT-INR; Complete Time: 23:37 cp 06/04 22:05 Order name: Troponin HS; Complete Time: 23:37 cp 06/04 22:05 Order name: Lipase; Complete Time: 23:37 cp 06/04 22:05 Order name: CT Head Brain wo Cont cp 06/04 22:05 Order name: XRAY Chest (1 view); Complete Time: 23:37 cp 06/04 22:05 Order name: CT Abd/Pelvis - IV Contrast Only cp 06/04 22:05 Order name: EKG; Complete Time: 22:06 cp 06/04 22:05 Order name: Cardiac monitoring; Complete Time: 22:20 cp 06/04 22:05 Order name: EKG - Nurse/Tech; Complete Time: 23:05 cp 06/04 22:05 Order name: IV Saline Lock; Complete Time: 22:20 cp 06/04 22:05 Order name: Labs collected and sent; Complete Time: 23:05 cp 06/04 22:05 Order name: O2 Per Protocol; Complete Time: 22:06 cp 06/04 22:05 Order name: O2 Sat Monitoring; Complete Time: 22:06 cp 06/05 01:16 Order name: PO challenge; Complete Time: 01:39 cp Administered Medications: 22:43 Drug: metoCLOPramide IVP 10 mg IVP once; over 1 to 2 minutes Route: IVP; Site: right ap3 forearm; 06/05 01:00 Follow up: Response: No adverse reaction 3 06/04 22:43 Drug: diphenhydrAMINE IVP 25 mg IVP once Route: IVP; Site: right forearm; ap3 06/05 01:00 Follow up: Response: No adverse reaction 3 06/04 21:43 Drug: NS 0.9% IV 500 ml IV at 250 ml/hr once Route: IV; Rate: 250 ml/hr; Site: right ap3 forearm; 06/05 01:00 Follow up: IV Status: Completed infusion; IV Intake: 500ml 3 06/04 21:43 Drug: Ketorolac IVP 10 mg 10 mg IVP once Route: IVP; Site: right antecubital; ap3 06/05 01:00 Follow up: Response: No adverse reaction; Pain is decreased ap3 Disposition Summary: 06/05/23 01:24 Discharge Ordered Notes: Location: Home cp Problem: new cp Symptoms: have improved cp Condition: Stable cp Diagnosis - Headache cp - Nausea with vomiting, unspecified cp - Diarrhea, unspecified cp Followup: cp - With: Private Physician - When: 1 - 2 days - Reason: Worsening of condition Discharge Instructions: - Discharge Summary Sheet cp - Diarrhea, Adult cp - General Headache Without Cause cp - Nausea and Vomiting, Adult cp Forms: - Medication Reconciliation Form cp - Thank You Letter cp - Antibiotic Education cp - Prescription Opioid Use cp - Patient Portal Instructions cp - Leadership Thank You Letter cp Prescriptions: - Zofran 4 mg Oral Tablet - take 1 tablet ORAL route every 12 hours As needed; 20 tablet; Refills: 0, cp Product Selection Permitted Signatures: Dispatcher [employer] Alpesh Hewitt MD MD cha Page, Corey, PA PA cp Cassy Carrington RN RN ap3 Ten Chambers RN RN tl4 Corrections: (The following items were deleted from the chart) 06/04 21:30 21:26 PMHx: prehypertension; tl4 tl4
[2023-06-05 01:54] VITALS: BP 106/70; TEMP 98.2; O2SAT 97
--- NOTE | 2023-06-05 10:17 | RAD REPORT ---
EXAM DESCRIPTION: Head Brain Wo Cont CLINICAL HISTORY: 67-year-old female with headache. COMPARISON: None. TECHNIQUE: CT brain without contrast. This exam was performed according to our departmental dose opt imization program which includes use of automated exposure control, adjustment of the mA and/or kV ac cording to patient size and/or use of iterative reconstruction technique. FINDINGS: The ventricles, sulci, and cisterns are within normal limits. The fierro-white matter diff erentiation is preserved. There is no mass effect, midline shift, intra- or extra-axial fluid colle ction/acute hemorrhage. The osseous structures are unremarkable. The paranasal sinuses and mastoi d air cells are clear. IMPRESSION: No acute intracranial abnormalities. Electronically signed by: Anjana Draper MD 06/05/2023 12:31 AM ENVIRONMENTAL GEOLOGIST Due to temporary technical issues with the PACS/Fluency reporting system, reports are being signed by the in house radiologists without review as a courtesy to insure prompt reporting. The interpreting radiologist is fully responsible for the content of the report.
--- NOTE | 2023-06-05 12:41 | RAD REPORT ---
EXAM DESCRIPTION: CT ABDOMEN PELVIS WITH IV CONTRAST CLINICAL HISTORY: ABD PAIN COMPARISON: None. TECHNIQUE: CT ABDOMEN PELVIS WITH IV CONTRAST on 06/04/2023 10:05 PM [employer] CL[employer] MANAGER This exam was performed according to our departmental dose-optimization program, which includes autom ated exposure control, adjustment of the mA and/or kV according to patient size and/or use of iterati ve reconstruction technique. FINDINGS: Lower lungs are clear. Abdomen: The liver is normal in appearance. There is no biliary dilatation. Cholecystectomy was perfo rmed. The pancreas and spleen are normal in appearance. Adrenal glands are normal. Kidneys are normal in size with multiple parapelvic cysts. There is no hydronephrosis. Abdominal aorta is normal in course and caliber without aneurysm. There is no free air. There is no r etroperitoneal adenopathy. Pelvis: There is mild to moderate distal colonic diverticulosis. Urinary bladder is unremarkable. The re is no free fluid. Uterus is normal in size. Appendix is not clearly seen. Skeleton: There are no acute osseous findings. No suspicious bony lesions. IMPRESSION: No acute process. Electronically signed by: Chris Pickens MD 06/05/2023 12:40 AM [employer] CL[employer] MANAGER Due to temporary technical issues with the PACS/Fluency reporting system, reports are being signed by the in house radiologists without review as a courtesy to insure prompt reporting. The interpreting radiologist is fully responsible for the content of the report.
== END ==
LOC: ER 21:13
DX: R19.7 Diarrhea, unspecified (principal); R51.9 Headache, unspecified; R11.2 Nausea with vomiting, unspecified; I10 Essential (primary) hypertension; Z79.899 Other long term (current) drug therapy; Z88.5 Allergy status to narcotic agent; Z88.8 Allergy status to other drugs, medicaments and biological substances
CPT/HCPCS: 36415; 70450; 71045; 74177; 80048; 80076; 83690; 83735; 84484; 85025; 85610; 93005; J1200; J2765; J7040; Q9967

== ENCOUNTER 2023-07-12 23:31 | Emergency (ER) | payer OTHER ==
[2023-07-12] MEDS ORDERED: MAGNESIUM SULFATE 1 gm IVPB 1 GM/100 ML BAG IV ONE (23:39)
[2023-07-12] MEDS ORDERED: METOPROLOL TAR 50 MG TAB ONE (23:58)
[2023-07-12] MEDS ORDERED: METOPROLOL TARTRATE 5 MG/5 ML INJ IV ONE (23:58)
[2023-07-13 00:08] LABS: Absolute Eosinophils 0.2 K/uL (0-0.5); Absolute Lymphocytes (CBC) 2.6 K/uL (0.7-4.9); Absolute Monocytes 0.8 K/uL (0.1-1.3); Absolute Neutrophil 5.1 K/uL (1.8-8.0); Basophils % 0.5 % (0-1.3); Hematocrit 38.2 % (36.0-45.0); Hemoglobin 12.6 g/dL (12.0-15.0); Lymphocytes % 29.6 % (15.3-44.8); MCH 27.2 pg (27.0-35.0); MCV 82.4 fL (80-100); MPV 8.5 fL (7.6-11.3); Monocytes % 9.2 % (3.3-12.3); Neutrophils % 58.7 % (41.7-73.7); Nucleated Red Blood Cells % 0.2 % (0-0); Platelets 250 thou/uL (152-406); RBC Red Blood Cell Count 4.64 M/uL (3.86-4.86); Red Cell Distribution Width 14.8 % (12.1-15.2)
[2023-07-13 00:10] LABS: PT Prothrombin Time 9.9 SECONDS (9.5-12.5); Protime INR 0.9
[2023-07-13 00:22] LABS: Anion Gap 8.3 mEq/L (5.0-15.0); Potassium 3.3 mEq/L (3.5-5.1); Troponin High Sensitivity 4.8 pg/mL (<58.9)
--- NOTE | 2023-07-13 01:55 | EDPHYS ---
Physician Documentation [facility] Name: Keyla Maravilla Age: 67 yrs Sex: Female : 1955 Arrival Date: 07/12/2023 Time: 23:31 Bed 4 Private MD: ED Physician Chucky Salmeron HPI: 07/11 23:37 This 67 yrs old Female presents to ER via Unassigned with complaints of palpitations. rn 23:37 The patient presents with a history of irregular heart beat, heart racing. Onset: The rn symptoms/episode began/occurred 15 minute(s) ago. Duration: The patient or guardian reports a single episode, that is still ongoing. Modifying factors: The symptoms are aggravated by nothing. The symptoms are alleviated by nothing. Severity of symptoms: At their worst the symptoms were moderate in the emergency department the symptoms are unchanged. The patient has not experienced similar symptoms in the past. Patient reports 15 minutes prior to arrival began with palpitations and dyspnea. Patient states 15 years ago had a Holter monitor for palpitations but inconclusive. Mother had A-fib. Patient without history of A-fib. Patient denies any chest pain or dizziness. No medication changes.. Historical: - Allergies: 23:42 Morphine; cm10 23:42 Parlodel; cm10 - Home Meds: 23:42 gabapentin 300 mg Oral capsule 1 cap 2 times per day [Active]; spironolactone 25 mg cm10 Oral tablet 1 tab daily [Active]; pantoprazole 40 mg Oral tablet 1 tab Every other day [Active]; - PMHx: 23:42 Hypertensive disorder; ULCER; cm10 - Immunization history:: Adult Immunizations up to date. - Social history:: Smoking status: Patient denies any tobacco usage or history of. - Family history:: not pertinent. - Hospitalizations: : No recent hospitalization is reported. ROS: 23:37 Constitutional: Negative for fever, chills, and weight loss, Eyes: Negative for injury, rn pain, redness, and discharge, Neck: Negative for injury, pain, and swelling, Cardiovascular: Positive for palpitations Respiratory: Positive for shortness of breath Abdomen/GI: Negative for abdominal pain, nausea, vomiting, diarrhea, and constipation, MS/Extremity: Negative for injury and deformity, Skin: Negative for injury, rash, and discoloration, Neuro: Negative for headache, weakness, numbness, tingling, and seizure, Exam: 23:37 Constitutional: This is a well developed, well nourished patient who is awake, alert, rn and in no acute distress. Head/Face: Normocephalic, atraumatic. Cardiovascular: Tachycardic, irregular. Respiratory: No increased work of breathing, no retractions or nasal flaring. Abdomen/GI: Soft, non-tender MS/ Extremity: Pulses equal, no cyanosis. Neuro: Awake and alert, GCS 15 Vital Signs: 23:40 BP 156 / 101; Pulse 140; Resp 15; Pulse Ox 99% on R/A; Weight 110.68 kg; Height 5 ft. 3 cm10 in. ; Pain 0/10; 07/12 00:04 BP 159 / 94; Pulse 95; Resp 18; Pulse Ox 97% on R/A; cm10 00:10 BP 132 / 77; Pulse 91; Resp 18; Pulse Ox 97% ; cm10 01:13 BP 119 / 78; Pulse 87; Resp 17 S; Pulse Ox 99% on R/A; ha1 01:30 BP 119 / 83; Pulse 80; Resp 17; Pulse Ox 98% on R/A; cm10 07/11 23:40 Body Mass Index 43.22 (110.68 kg, 160.02 cm) cm10 07/11 23:40 Pain Scale: Adult cm10 MDM: 07/11 23:34 Patient medically screened. rn 07/12 01:53 Differential diagnosis: arrythmia, dehydration, stress disorder. Data reviewed: vital rn signs, nurses notes, lab test result(s), EKG, radiologic studies, plain films, and as a result, I will discharge patient. Counseling: I had a detailed discussion with the patient and/or guardian regarding the historical points, exam findings, and any diagnostic results supporting the discharge/admit diagnosis, lab results, radiology results, the need for outpatient follow up, to return to the emergency department if symptoms worsen or persist or if there are any questions or concerns that arise at home. Response to treatment: the patient's symptoms have resolved after treatment, the patient's condition has returned to base line, the patient is now symptom free, and as a result, I will discharge patient. Special discussion: I discussed with the patient/guardian in detail that at this point there is no indication for admission to the hospital. It is understood, however, that if the symptoms persist or worsen the patient needs to return immediately for re-evaluation. Based on the history and exam findings, there is no indication for further emergent testing or inpatient evaluation. I discussed with the patient/guardian the need to see the custom shop worker for further evaluation of the symptoms. ED course: Patient converted after using the bathroom and p.o. metoprolol. Observed here and no recurrent atrial fibrillation. Troponin negative. Patient feels back to baseline without symptoms. Patient sees Dr. Lagunas, will make appointment for follow-up. Return precautions given and understood.. 07/11 23:36 Order name: Basic Metabolic Panel; Complete Time: 00:44 rn 07/11 23:36 Order name: CBC with Diff; Complete Time: 00:44 rn 07/11 23:36 Order name: NT PRO-BNP; Complete Time: 00:44 rn 07/11 23:36 Order name: PT-INR; Complete Time: 00:44 rn 07/11 23:36 Order name: Troponin HS; Complete Time: 00:44 rn 07/11 23:34 Order name: XRAY Chest (1 view) rn 07/11 23:34 Order name: EKG; Complete Time: 23:35 rn 07/11 23:34 Order name: Cardiac monitoring; Complete Time: 23:55 rn 07/11 23:34 Order name: EKG - Nurse/Tech; Complete Time: 23:55 rn 07/11 23:34 Order name: IV Saline Lock; Complete Time: 23:55 07/11 23:34 Order name: Labs collected and sent; Complete Time: 23:55 rn 07/11 23:34 Order name: O2 Per Protocol; Complete Time: 23:55 rn 07/11 23:34 Order name: O2 Sat Monitoring; Complete Time: 23:55 rn 07/12 00:12 Order name: EKG - Nurse/Tech; Complete Time: 00:12 cm10 Administered Medications: 07/11 23:55 Drug: Magnesium Sulfate IVPB 1 grams IVPB once over 1 hrs Route: IVPB; Infused Over: 1 cm10 hrs; Site: right antecubital; 07/12 00:46 Follow up: Response: No adverse reaction; IV Status: Completed infusion; IV Intake: cm10 100ml 00:20 Drug: Metoprolol PO 50 mg PO once Route: PO; cm10 00:45 Follow up: Response: No adverse reaction cm10 02:14 Not Given (Other Intervention Used): metoprolol5 mg IVP once; Hold for SBP <100 or HR cm10 <60. Disposition Summary: 07/13/23 01:54 Discharge Ordered Notes: Location: Home rn Problem: new rn Symptoms: have improved rn Condition: Stable rn Diagnosis - Paroxysmal atrial fibrillation rn Followup: rn - With: Edwardo Lagunas MD - When: As needed - Reason: Recheck today's complaints, Re-evaluation by your physician Discharge Instructions: - Discharge Summary Sheet rn - Atrial Fibrillation rn Forms: - Medication Reconciliation Form rn - Thank You Letter rn - Antibiotic rn care transition - Prescription Opioid Use rn - Patient Portal Instructions rn - Leadership Thank You Letter rn Signatures: Dispatcher [employer] Chucky Martinez MD MD rn Martinez, Clarissa, RN RN cm10 Corrections: (The following items were deleted from the chart) 00:10 07/11 23:35 BASIC METABOLIC PANEL+C.LAB.BRZ ordered. EDMS EDMS 07/12 00:10 07/11 23:35 CBC+H.LAB.BRZ ordered. EDMS EDMS 07/12 00:10 07/11 23:35 PROBNP+C.LAB.BRZ ordered. EDMS EDMS 07/12 00:07/11 23:35 PROTIME (+INR)+COAG.LAB.BRZ ordered. EDMS EDMS 07/12 00:07/11 23:35 Troponin High Sensitivity+C.LAB.BRZ ordered. EDDC EDMS
--- NOTE | 2023-07-13 01:55 | ER ---
Nurse's Notes [facility] Name: Keyla Maravilla Age: 67 yrs Sex: Female : 1955 Arrival Date: 07/12/2023 Time: 23:31 Bed 4 Private MD: Diagnosis: Paroxysmal atrial fibrillation Presentation: 07/11 23:40 Chief complaint: Patient states: Palpitations and shortness of breath onset 15 minutes cm10 DRILLER HAND. Pt denies chest pain. Pt states that this began while she was watching TV. Coronavirus screen: Client denies travel out of the [place] in the last 14 days. At this time, the client does not indicate any symptoms associated with coronavirus-19. Ebola Screen: Patient denies travel to an Ebola-affected area in the 21 days before illness onset. No symptoms or risks identified at this time. Initial Sepsis Screen: Does the patient meet any 2 criteria? HR > 90 bpm. Does the patient have a suspected source of infection? No. Patient's initial sepsis screen is negative. Risk Assessment: Do you want to hurt yourself or someone else? Patient reports no desire to harm self or others. Onset of symptoms was July 12, 2023. 23:40 Method Of Arrival: Wheelchair cm10 23:40 Acuity: RC 2 cm10 Triage Assessment: 23:40 General: Appears in no apparent distress. comfortable, Behavior is calm, cooperative. cm10 Pain: Denies pain. Neuro: No deficits noted. Level of Consciousness is awake, alert, obeys commands, Oriented to person, place, time, situation. Cardiovascular: No deficits noted. Capillary refill < 3 seconds Patient's skin is warm and dry. Rhythm is atrial fibrillation. Respiratory: No deficits noted. Reports shortness of breath Airway is patent Respiratory effort is even, unlabored, Respiratory pattern is regular, agonal Onset: The symptoms/episode began/occurred just prior to arrival, the patient has mild shortness of breath. Derm: No deficits noted. Skin is intact, Skin is pink, warm \T\ dry. Musculoskeletal: Range of motion: intact in all extremities. Historical: - Allergies: 23:42 Morphine; cm10 23:42 Parlodel; cm10 - Home Meds: 23:42 gabapentin 300 mg Oral capsule 1 cap 2 times per day [Active]; spironolactone 25 mg cm10 Oral tablet 1 tab daily [Active]; pantoprazole 40 mg Oral tablet 1 tab Every other day [Active]; - PMHx: 23:42 Hypertensive disorder; ULCER; cm10 - Immunization history:: Adult Immunizations up to date. - Social history:: Smoking status: Patient denies any tobacco usage or history of. - Family history:: not pertinent. - Hospitalizations: : No recent hospitalization is reported. Screenin/01 00:06 [facility] ED Fall Risk Assessment (Adult) History of falling in the last 3 months, cm10 including since admission No falls in past 3 months (0 pts) Confusion or Disorientation No (0 pts) Intoxicated or Sedated No (0 pts) Impaired Gait No (0 pts) Mobility Assist Device Used Yes (1 pt) Altered Elimination No (0 pt) Score/Fall Risk Level 0 - 2 = Low Risk Oriented to surroundings, Maintained a safe environment, Hourly rounding (assess needs \T\ fall precautionary measures) done. Abuse screen: Denies threats or abuse. Denies injuries from another. Nutritional screening: No deficits noted. Tuberculosis screening: No symptoms or risk factors identified. Assessment: 07/11 23:40 Cardiovascular: Rhythm is atrial fibrillation. cm10 07/12 00:02 Reassessment: Pt noted to have converted to sinus rhythm. Prior to receiving cm10 medications. Provider made aware. EKG being repeated. 00:04 Reassessment: Patient states feeling better. Patient states symptoms have improved. cm10 Cardiovascular: Rhythm is sinus rhythm. 00:05 Pain: Denies pain. Respiratory: Airway is patent Respiratory effort is even, unlabored, cm10 Respiratory pattern is regular, symmetrical, Not auscultated. 01:14 Reassessment: Patient and/or family updated on plan of care and expected duration. Pain ha1 level reassessed. Patient is alert, oriented x 3, equal unlabored respirations, skin warm/dry/pink. Cardiovascular: Rhythm is sinus rhythm. Vital Signs: 07/11 23:40 BP 156 / 101; Pulse 140; Resp 15; Pulse Ox 99% on R/A; Weight 110.68 kg; Height 5 ft. 3 cm10 in. ; Pain 0/10; 07/12 00:04 BP 159 / 94; Pulse 95; Resp 18; Pulse Ox 97% on R/A; cm10 00:10 BP 132 / 77; Pulse 91; Resp 18; Pulse Ox 97% ; cm10 01:13 BP 119 / 78; Pulse 87; Resp 17 S; Pulse Ox 99% on R/A; ha1 01:30 BP 119 / 83; Pulse 80; Resp 17; Pulse Ox 98% on R/A; cm10 07/11 23:40 Body Mass Index 43.22 (110.68 kg, 160.02 cm) cm10 07/11 23:40 Pain Scale: Adult cm10 ED Course: 07/11 23:34 Patient arrived in ED. rn 23:34 Chucky Salmeron MD is Attending Physician. rn 23:42 Triage completed. cm10 23:42 Arm band placed on right wrist. Patient placed in an exam room, on a stretcher, on cm10 water quality assistant, on pulse oximetry. EKG completed in triage. Results shown to MD. 23:43 EKG done, by ED staff, reviewed by Chucky Salmeron MD. cm10 23:43 Inserted saline lock: 22 gauge in right antecubital area, using aseptic technique. kmf Blood collected. 23:43 Initial lab(s) drawn, by al, sent to lab. kmf 23:54 Inserted saline lock: 22 gauge in left forearm, using aseptic technique. Blood cm10 collected. Missed attempt(s): 22 gauge in left Bleeding controlled, band aid applied, catheter tip intact. Patient maintains SpO2 saturation greater than 95% on room air. 23:55 Basic Metabolic Panel Sent. cm10 23:55 CBC with Diff Sent. cm10 23:55 NT PRO-BNP Sent. cm10 23:55 PT-INR Sent. cm10 23:55 Troponin HS Sent. cm10 07/12 00:06 Patient has correct armband on for positive identification. Bed in low position. Call cm10 light in reach. Side rails up X2. Provided Education on: ER process and procedures. . Client placed on continuous cardiac and pulse oximetry monitoring. NIBP monitoring applied. oil and gas field technician on. 00:10 Luz Mairna Miranda, LEROY is Primary Nurse. cm10 00:13 EKG done, by ED staff, reviewed by Chucky Salmeron MD. cm10 00:43 XRAY Chest (1 view) In Process Unspecified. EDMS 01:54 Edwardo Lagunas MD is Referral Physician. rn 02:15 No provider procedures requiring assistance completed. IV discontinued, intact, cm10 bleeding controlled, No redness/swelling at site. Pressure dressing applied. Administered Medications: 07/11 23:55 Drug: Magnesium Sulfate IVPB 1 grams IVPB once over 1 hrs Route: IVPB; Infused Over: 1 cm10 hrs; Site: right antecubital; 07/12 00:46 Follow up: Response: No adverse reaction; IV Status: Completed infusion; IV Intake: cm10 100ml 00:20 Drug: Metoprolol PO 50 mg PO once Route: PO; cm10 00:45 Follow up: Response: No adverse reaction cm10 02:14 Not Given (Other Intervention Used): metoprolol5 mg IVP once; Hold for SBP <100 or HR cm10 <60. Medication: 00:06 VIS not applicable for this client. cm10 Intake: 00:46 IV: 100ml; Total: 100ml. cm10 Outcome: 01:54 Discharge ordered by . rn 02:15 Discharged to home ambulatory, with significant other, cm10 02:15 Condition: good 02:15 Discharge instructions given to patient, Instructed on discharge instructions, follow up and referral plans. Demonstrated understanding of instructions, follow-up care, 02:16 Patient left the ED. cm10 Signatures: Dispatcher [employer] EDMS Chucky Salmeron MD MD rn Ayala, Heidy, RN RN ha1 Luz Marina Miranda RN RN cm10 Nathalia Velasquez [facility] Corrections: (The following items were deleted from the chart) 00:03 00:02 Reassessment: Pt noted to have converted to sinus rhythm. Prior to receiving cm10 medications. Provider made aware. cm10 00:05 00:05 Respiratory: Airway is patent Respiratory effort is even, unlabored, Respiratory cm10 pattern is regular, symmetrical, Not auscultated. cm10
[2023-07-13 08:30] VITALS: BP 119/83; O2SAT 98
--- NOTE | 2023-07-13 13:30 | RAD REPORT ---
EXAM DESCRIPTION: RAD - Chest Single View - 07/13/2023 12:42 am CLINICAL HISTORY: Palpitations;Dyspnea COMPARISON: None TECHNIQUE: Single AP view of the chest. FINDINGS: Lung volumes adequate. Cardiac silhouette is normal in size. No pneumothorax. No large pleural effusion. No focal consolidation. No acute bony finding. Suture anchor in the right humeral head. IMPRESSION: No acute cardiopulmonary findings. Electronically signed by: Cece Sauceda MD 07/13/2023 12:52 AM CDT Due to temporary technical issues with the PACS/Fluency reporting system, reports are being signed by the in house radiologist without review as a courtesy to ensure prompt reporting. The interpreting r adiologist is fully responsible for the content of the report.
--- NOTE | 2023-07-13 13:38 | EKG ---
Test Date: 2023-07-13 Test Time: 00:03:31 Geospatial Scientist: KATHARINA MEASUREMENT RESULTS: Intervals: Rate: 91 KS: 158 QRSD: 76 QT: 354 QTc: 435 [place]: P: 54 KS: 158 QRS: 26 T: 5 INTERPRETIVE STATEMENTS: Normal sinus rhythm Low voltage QRS Cannot rule out Anterior infarct, age undetermined Abnormal ECG Compared to ECG 06/04/2023 22:46:47 Low QRS voltage now present Myocardial infarct finding now present Electronically Signed On 07-13-23 13:36:12 CDT by Edwardo Lagunas
--- NOTE | 2023-07-13 13:38 | EKG ---
Test Date: 2023-07-12 Test Time: 23:21:08 Surg Tech: JOSE MEASUREMENT RESULTS: Intervals: Rate: 137 [place]: QRSD: 76 QT: 304 QTc: 459 [place]: P: MI: QRS: 47 T: -64 INTERPRETIVE STATEMENTS: Atrial fibrillation with rapid ventricular response Anterior infarct, age undetermined Abnormal ECG Compared to ECG 06/04/2023 22:46:47 Myocardial infarct finding now present Sinus rhythm no longer present Electronically Signed On 07-13-23 13:36:16 CDT by Edwardo Lagunas
== END 2023-07-13 02:16 | disposition home or self-care (01) ==
LOC: ER 23:31
DX: I48.0 Paroxysmal atrial fibrillation (principal); I10 Essential (primary) hypertension; Z88.5 Allergy status to narcotic agent; Z88.8 Allergy status to other drugs, medicaments and biological substances
CPT/HCPCS: 96365; 93005 ×3; 85025; 80048; 36415; 85610; 84484; 83880; 71045; 99285; J3475

== ENCOUNTER 2024-11-22 00:50 | Inpatient (IN) | payer OTHER ==
[2024-11-22] MEDS ORDERED: DILTIAZEM HCL 60 MG TAB ONE (01:26)
[2024-11-22 01:44] LABS: PT Prothrombin Time 10.6 SECONDS (10-13.0); Protime INR 0.94
[2024-11-22 01:58] LABS: Absolute Lymphocytes (CBC) 2.7 K/uL (0.7-4.9); Hematocrit 42.5 % (36.0-45.0); Hemoglobin 14.0 g/dL (12.0-15.0); MCH 27.3 pg (27.0-35.0); MCHC 32.9 g/dL (32.0-36.0); MCV 83.0 fL (80-100); MPV 8.7 fL (7.6-11.3); Nucleated RBC Absolute Count 0.0 (0-0); Nucleated Red Blood Cells % 0.1 % (0-0); RBC Red Blood Cell Count 5.12 M/uL (3.86-4.86); White Blood Count 7.40 thou/uL (4.3-10.9)
[2024-11-22 02:00] LABS: ALT/SGPT 19 U/L (13-56); AST/SGOT 13 U/L (15-37); Albumin 3.7 g/dL (3.4-5.0); Albumin/Globulin Ratio 1.0 (1.1-1.8); Alkaline Phosphatase 75 U/L (45-117); Anion Gap 10.3 mEq/L (5.0-15.0); BUN Blood Urea Nitrogen 23 mg/dL (7-18); Globulin 3.6 g/dL (2.3-3.5); Glucose Level 109 mg/dL (74-106); Magnesium 1.8 mg/dL (1.6-2.4); NT PRO-BNP 76 pg/mL (<125); Potassium 3.3 mEq/L (3.5-5.1); Troponin High Sensitivity 4.6 pg/mL (<58.9)
[2024-11-22 02:09] LABS: Bilirubin Indirect, Calculated 0.1 mg/dL (0.2-0.8)
--- NOTE | 2024-11-22 04:05 | ER ---
Nurse's Notes [facility] Name: Keyla Maravilla Age: 68 yrs Sex: Female : 1955 Arrival Date: 11/22/2024 Time: 00:50 Bed 5 Private MD: Diagnosis: Unspecified atrial fibrillation;Acute onset atrial fibrillation with rapid ventricular response Presentation: 11/22 01:19 Chief complaint: EMS states: sudden onset palpitations 0030. HX of AFIB RVR. On EMS lg3 arrival PT HR in 150's. 20mg Diltiazem administered SCIENTOLOGIST. Coronavirus screen: Client denies travel out of the [place] in the last 14 days. Ebola Screen: No symptoms or risks identified at this time. Initial Sepsis Screen: Does the patient meet any 2 criteria? No. Patient's initial sepsis screen is negative. Does the patient have a suspected source of infection? No. Patient's initial sepsis screen is negative. Risk Assessment: Do you want to hurt yourself or someone else? Patient reports no desire to harm self or others. Onset of symptoms was November 22, 2024 at 00:30. 01:19 Method Of Arrival: EMS: [facility] lg3 01:19 Acuity: RC 3 lg3 Triage Assessment: 01:23 General: Appears in no apparent distress. comfortable, Behavior is calm, cooperative. lg3 Pain: Denies pain. EENT: No deficits noted. No signs and/or symptoms were reported regarding the EENT system. Neuro: No deficits noted. Cardona Agitation-Sedation Scale (RASS): 0 - Alert and Calm Level of Consciousness is awake, alert, obeys commands, Oriented to person, place, time, situation. Cardiovascular: Reports palpitations, shortness of breath, Denies chest pain, Capillary refill < 3 seconds Clubbing of nail beds is absent JVD is absent Patient's skin is warm and dry. Respiratory: No deficits noted. Airway is patent Respiratory effort is even, unlabored, Respiratory pattern is regular, symmetrical, Breath sounds are clear bilaterally. GI: No deficits noted. No signs and/or symptoms were reported involving the gastrointestinal system. : No signs and/or symptoms were reported regarding the genitourinary system. Derm: No deficits noted. No signs and/or symptoms reported regarding the dermatologic system. Skin is intact, is healthy with good turgor, Skin is dry, Skin is normal, Skin temperature is warm. Musculoskeletal: No deficits noted. No signs and/or symptoms reported regarding the musculoskeletal system. Circulation, motion, and sensation intact. Range of motion: intact in all extremities. Historical: - Allergies: 01: Morphine; lg3 01: Parlodel; lg3 - Home Meds: : aspirin 81 mg oral tablet [Active]; oxycarbazepine [Active]; metoprolol tartrate 25 mg lg3 Oral tablet [Active]; - PMHx: : Atrial fibrillation; Hypertensive disorder; ULCER; lg3 - PSHx: : watchman (ULCE); section; lg3 - Immunization history:: Adult Immunizations up to date. - Infectious Disease History:: Denies. - Social history:: Smoking status: Patient denies any tobacco usage or history of. Patient/guardian denies using alcohol, street drugs. - Family history:: not pertinent. Screenin: [facility] ED Fall Risk Assessment (Adult) History of falling in the last 3 months, lg3 including since admission No falls in past 3 months (0 pts) Confusion or Disorientation No (0 pts) Intoxicated or Sedated No (0 pts) Impaired Gait No (0 pts) Mobility Assist Device Used No (0 pt) Altered Elimination No (0 pt) Score/Fall Risk Level 0 - 2 = Low Risk Oriented to surroundings, Maintained a safe environment, Educated pt \T\ family on fall prevention, incl call for assistance when getting out of bed, Assessed \T\ reinforced patient's understanding of fall precautions. Abuse screen: Denies threats or abuse. Denies injuries from another. Nutritional screening: No deficits noted. Tuberculosis screening: No symptoms or risk factors identified. Assessment: : General: see triage assessment. lg3 01:56 General: Appears in no apparent distress. Behavior is calm, cooperative. Pain: Denies kd3 pain. Neuro: Level of Consciousness is awake, alert, obeys commands, Oriented to person, place, time, situation. Cardiovascular: Capillary refill < 3 seconds Patient's skin is warm and dry. Respiratory: Airway is patent Trachea midline Respiratory effort is even, unlabored, Respiratory pattern is regular, symmetrical. 01:56 Cardiovascular: Rhythm is atrial fibrillation. kd3 03:58 Reassessment: Patient appears in no apparent distress at this time. No changes from lg3 previously documented assessment. Patient and/or family updated on plan of care and expected duration. Pain level reassessed. Patient is alert, oriented x 3, equal unlabored respirations, skin warm/dry/pink. Patient states feeling better. Patient states symptoms have improved. 06:49 Reassessment: Patient appears in no apparent distress at this time. No changes from lg3 previously documented assessment. Patient and/or family updated on plan of care and expected duration. Pain level reassessed. Patient is alert, oriented x 3, equal unlabored respirations, skin warm/dry/pink. Patient denies pain at this time. Patient states feeling better. Patient states symptoms have improved. Vital Signs: 01:19 BP 145 / 79; Pulse 107; Resp 18 S; Temp 98.6(O); Pulse Ox 98% on R/A; Weight 112.94 kg lg3 (R); Height 5 ft. 3 in. (R); Pain 0/10; 01:55 BP 129 / 85; Pulse 105; Resp 18; Pulse Ox 98% on R/A; kd3 03:00 BP 131 / 81; Pulse 86; Resp 18; Pulse Ox 96% on R/A; kd3 03:48 BP 133 / 87; Pulse 100; Resp 18; Pulse Ox 96% on R/A; kd3 04:59 BP 120 / 77; Pulse 85; Resp 18; Pulse Ox 95% on R/A; kd3 06:49 BP 106 / 61; Pulse 76; Resp 17 S; Pulse Ox 95% on R/A; lg3 01:19 Body Mass Index 44.11 (112.94 kg, 160.02 cm) lg3 01:19 Pain Scale: Adult lg3 Carol Coma Score: 04:08 Eye Response: spontaneous(4). Motor Response: obeys commands(6). Verbal Response: sp4 oriented(5). Total: 15. ED Course: 01:07 Patient arrived in ED. lg3 01:17 David Gaines MD is Attending Physician. sp4 01:20 Mandie Webber, LEROY is Primary Nurse. kd3 01:21 EKG done, by engineering lab technician. ts3 01:23 Triage completed. lg3 01:23 Arm band placed on right wrist. lg3 01:26 Initial lab(s) drawn, by ED staff, sent to lab. Maintain EMS IV. Dressing intact. Good lg3 blood return noted. Site clean \T\ dry. Gauge \T\ site: 20 R Wrist. Flushed with 10 mL NS. 01:26 Patient has correct armband on for positive identification. Placed in gown. Bed in low lg3 position. Call light in reach. Side rails up X 1. Client placed on continuous cardiac and pulse oximetry monitoring. NIBP monitoring applied. cardiac monitor on. Door closed. Noise minimized. Warm blanket given. Pillow given. 01:28 Maintain EMS IV. Dressing intact. Good blood return noted. Site clean \T\ dry. Gauge \T\ lg 3 site: 20 LFA. Flushed with 10 mL NS. 01:29 XRAY Chest (1 view) In Process Unspecified. EDMS 01:36 Troponin HS Sent. kd3 01:36 PT-INR Sent. kd3 01:36 NT PRO-BNP Sent. kd3 01:36 Magnesium Sent. kd3 01:36 LFT's Sent. kd3 01:36 CBC with Diff Sent. kd3 01:36 Basic Metabolic Panel Sent. kd3 04:04 Rosalio Levin MD is Hospitalizing Provider. sp4 04:59 No provider procedures requiring assistance completed. Patient admitted, IV remains in kd3 place. 04:59 Provided Education on: cardiac monitoring . kd3 Administered Medications: 01:36 Drug: Diltiazem PO 60 mg PO once Route: PO; kd3 03:59 Follow up: Response: No adverse reaction; Marked relief of symptoms lg3 03:59 Not Given (Physician Discretion): diltiazem 5 mg/hr IV at calculated rate See lg3 Administration Instructions; (standard dilution 125 mg diltiazem mixed in 125 mL NS; final concentration 1mg/mL). Recommended max rate 15 mg/hr; Titrate 5 mg/hr as often as every 15 minutes to achieve goal (see titration policy); Goal parameter HR less than 100 bpm Medication: 01:26 VIS not applicable for this client. lg3 Outcome: 04:05 Decision to Hospitalize by Provider. sp4 04:59 Admitted to ER Hold. Please see [facility] for further documentation. kd3 04:59 Condition: stable 04:59 Discharge instructions given to patient, Instructed on the need for admit, 09:07 Patient left the ED. ph Signatures: Dispatcher [employer] EDSofia Allan RN RN ph Able, LEROY Jama RN lg3 Mandie Webber RN RN kd3 aDvid Gaines MD MD sp4 Diana Beckett ts3 Corrections: (The following items were deleted from the chart) 01:29 01:19 Pulse 107bpm; Resp 18bpm; Spontaneous; Pulse Ox 98% RA; Temp 98.6F Oral; 112.94 lg3 kg Reported; Height 5 ft. 3 in. Reported; BMI: 44.1; Pain 0/10, Adult; lg3
--- NOTE | 2024-11-22 04:05 | EDPHYS ---
Physician Documentation [facility] Name: Keyla Maravilla Age: 68 yrs Sex: Female : 1955 Arrival Date: 11/22/2024 Time: 00:50 Bed 5 Private MD: ED Physician David Gaines HPI: 11/22 01:10 This 68 yrs old Female presents to ER via Unassigned with complaints of Palpitations kb and shortness of breath. 01:10 Patient is a 68-year-old female who presents for shortness of breath and palpitations kb that started about 1 hour ago. States she was watching TV and when she got up to go to bed the symptoms presented suddenly. Patient had a Watchman procedure 11 months ago. EMS reports heart rate in the 150s upon their arrival to the house, 300 cc of NS and 20 mg of diltiazem given en route. Rate currently 110-130s. Historical: - Allergies: 01:23 Morphine; lg3 01:23 Parlodel; lg3 - Home Meds: 01:23 aspirin 81 mg oral tablet [Active]; oxycarbazepine [Active]; metoprolol tartrate 25 mg lg3 Oral tablet [Active]; - PMHx: 01:23 Atrial fibrillation; Hypertensive disorder; ULCER; lg3 - PSHx: 01:23 watchman (ULCE); section; lg3 - Immunization history:: Adult Immunizations up to date. - Infectious Disease History:: Denies. - Social history:: Smoking status: Patient denies any tobacco usage or history of. Patient/guardian denies using alcohol, street drugs. - Family history:: not pertinent. ROS: 04:08 Constitutional: Negative for fever, chills, and weight loss, positive for acute onset sp4 palpitations 04:08 All other systems are negative, Exam: 04:08 Constitutional: This is a well developed, well nourished patient who is awake, alert, sp4 and in no acute distress. Head/Face: Normocephalic, atraumatic. Eyes: Pupils equal round and reactive to light, extra-ocular motions intact. Lids and lashes normal. Conjunctiva and sclera are not injected. Cornea within normal limits. Periorbital areas with no swelling, redness, or edema. ENT: Nares patent. No nasal discharge, no septal abnormalities noted. Tympanic membranes are normal and external auditory canals are clear. Oropharynx with no redness, swelling, or masses, exudates, or evidence of obstruction, uvula midline. Mucous membranes moist. Neck: Trachea midline, no thyromegaly or masses palpated, and no cervical lymphadenopathy. Supple, full range of motion without nuchal rigidity, or vertebral point tenderness. Chest/axilla: Normal chest wall appearance and motion. Nontender with no deformity. No lesions are appreciated. Cardiovascular: Irregular tachycardia on the monitor. No gallops, murmurs, or rubs. No pulse deficits. Respiratory: Lungs have equal breath sounds bilaterally, clear to auscultation and percussion. No rales, rhonchi or wheezes noted. No increased work of breathing, no retractions or nasal flaring. Abdomen/GI: Soft, with normal bowel sounds. No distension or tympany. No guarding or rebound. No evidence of tenderness throughout. Back: No spinal tenderness. No costovertebral tenderness. Skin: Warm, dry with normal turgor. Normal color with no rashes, no lesions, and no evidence of cellulitis. MS/ Extremity: Pulses equal, no cyanosis. Neurovascular intact. Full, normal range of motion. Neuro: Awake and alert, GCS 15, oriented to person, place, time, and situation. Cranial nerves II-XII grossly intact. Motor strength 5/5 in all extremities. Sensory grossly intact. Psych: Awake, alert, with orientation to person, place and time. Behavior, mood, and affect are within normal limits 04:08 ECG was reviewed by the Attending Physician. EKG 0 115 atrial fibrillation rate 99, no ST elevation or depression, no ventricular ectopy, overall no signs of acute ischemia. Vital Signs: 01:19 BP 145 / 79; Pulse 107; Resp 18 S; Temp 98.6(O); Pulse Ox 98% on R/A; Weight 112.94 kg lg3 (R); Height 5 ft. 3 in. (R); Pain 0/10; 01:55 BP 129 / 85; Pulse 105; Resp 18; Pulse Ox 98% on R/A; kd3 03:00 BP 131 / 81; Pulse 86; Resp 18; Pulse Ox 96% on R/A; kd3 03:48 BP 133 / 87; Pulse 100; Resp 18; Pulse Ox 96% on R/A; kd3 04:59 BP 120 / 77; Pulse 85; Resp 18; Pulse Ox 95% on R/A; kd3 06:49 BP 106 / 61; Pulse 76; Resp 17 S; Pulse Ox 95% on R/A; lg3 01:19 Body Mass Index 44.11 (112.94 kg, 160.02 cm) lg3 01:19 Pain Scale: Adult lg3 [place] Coma Score: 04:08 Eye Response: spontaneous(4). Motor Response: obeys commands(6). Verbal Response: sp4 oriented(5). Total: 15. MDM: 01:10 Medical Screening Exam initiated kb 04:10 Differential diagnosis: abnormal EKG, acute pericarditis, anxiety, coronary artery sp4 disease chest wall pain, esophagitis, gastritis. HEART Score: History: Moderately Suspicious (1), ECG: Non specific repolarization disturbance / LBTB / PM (1), Age: > or = 65 years (2), Risk Factors: 1 or 2 risk factors (1), Troponin: < or = 1 x Normal Limit (0), Total Score = 5. The patient was not given aspirin in the Emergency Department. Administered by EMS. Data reviewed: vital signs, nurses notes, lab test result(s), EKG, radiologic studies, plain films. ED course: EXAM DESCRIPTION: X-ray single view chest. CLINICAL HISTORY: 68 years Female, PALPITATIONS COMPARISON: Chest x-ray report from 06/04/2023. The images were unavailable for review. TECHNIQUE: Single portable x-ray view of the chest performed on 11/22/2024 at 1:23 AM FINDINGS: The lungs are well expanded and are clear. There is no evidence of a pneumothorax. The cardiac silhouette is normal in size and configuration. The mediastinal contours are normal. No acute osseous abnormality is identified. There are remote postsurgical changes of the right humeral head. No focal soft tissue abnormalities are seen. Lines and tubes: None. Free air: None identified, IMPRESSION: No evidence of acute intrathoracic disease. Electronically signed by: Kathie Sanchez DO 11/22/2024 02:42 AM. 05:11 ED course: EXAM DESCRIPTION: X-ray single view chest. CLINICAL HISTORY: 68 years sp4 Female, PALPITATIONS COMPARISON: Chest x-ray report from 06/04/2023. The images were unavailable for review. TECHNIQUE: Single portable x-ray view of the chest performed on 11/22/2024 at 1:23 AM FINDINGS: The lungs are well expanded and are clear. There is no evidence of a pneumothorax. The cardiac silhouette is normal in size and configuration. The mediastinal contours are normal. No acute osseous abnormality is identified. There are remote postsurgical changes of the right humeral head. No focal soft tissue abnormalities are seen. Lines and tubes: None. Free air: None identified, IMPRESSION: No evidence of acute intrathoracic disease. Electronically signed by: Kathie Sanchez DO 11/22/2024 02:42 AM . 11/22 01:10 Order name: Basic Metabolic Panel; Complete Time: 03:27 kb 11/22 01:10 Order name: CBC with Diff; Complete Time: 03:27 kb 11/22 01:10 Order name: LFT's; Complete Time: 03:27 kb 11/22 01:10 Order name: Magnesium; Complete Time: 03:27 kb 11/22 01:10 Order name: NT PRO-BNP; Complete Time: 03:27 kb 11/22 01:10 Order name: PT-INR; Complete Time: 03:27 kb 11/22 01:10 Order name: Troponin HS; Complete Time: 03:27 kb 11/22 01:10 Order name: XRAY Chest (1 view) kb 11/22 01:10 Order name: EKG; Complete Time: 01:11 kb 11/22 04:00 Order name: CONS Physician Consult EDHI 11/22 01:10 Order name: Cardiac monitoring; Complete Time: :29 kb 11/22 01:10 Order name: EKG - Nurse/Tech; Complete Time: :21 kb 11/22 01:10 Order name: IV Saline Lock; Complete Time: :29 kb 11/22 01:10 Order name: Labs collected and sent; Complete Time: kb 11/22 01:10 Order name: O2 Per Protocol; Complete Time: kb 11/22 01:10 Order name: O2 Sat Monitoring; Complete Time: 01:29 kb EC:15 Rate is 99 beats/min. Rhythm is irregularly irregular, A fib. QRS [place] is Normal. QRS sp4 interval is normal. QT interval is normal. No Q waves. T waves are Normal. No ST changes noted. Clinical impression: Atrial Fibrillation. Interpreted by me. Reviewed by me. Administered Medications: 01:36 Drug: Diltiazem PO 60 mg PO once Route: PO; kd3 03:59 Follow up: Response: No adverse reaction; Marked relief of symptoms lg3 03:59 Not Given (Physician Discretion): diltiazem 5 mg/hr IV at calculated rate See lg3 Administration Instructions; (standard dilution 125 mg diltiazem mixed in 125 mL NS; final concentration 1mg/mL). Recommended max rate 15 mg/hr; Titrate 5 mg/hr as often as every 15 minutes to achieve goal (see titration policy); Goal parameter HR less than 100 bpm Disposition: 04:03 Critical Care:. Co-signature as Attending Physician, David Gaines MD I agree with sp4 the assessment and plan of care. I reviewed the patient's care provided by Advanced Practice Provider \T\ agree w/ the diagnosis \T\ care plan. I personally saw the pt \T\ performed a substantive portion of the visit, incldng all aspects of the (History/Exam/Medical Decision Making). 19:33 Chart complete. sp4 Disposition Summary: 11/22/24 04:05 Hospitalization Ordered Notes: Hospitalization Status: Observation sp4 Provider: Rosalio Levin sp4 Condition: Stable sp4 Problem: new sp4 Symptoms: have improved sp4 Bed/Room Type: Standard sp4 Location: Telemetry/MedSurg (observation)(11/22/24 06:44) Room Assignment: [facility](11/22/24 06:44) Diagnosis - Unspecified atrial fibrillation sp4 - Acute onset atrial fibrillation with rapid ventricular response sp4 Discharge Instructions: - Discharge Summary Sheet lg3 Forms: - SBAR form lg3 - Medication Reconciliation Form sp4 - Leadership Thank You Letter sp4 Critical care time excluding procedures: 04:03 Critical care time: Bedside Care: 36 minutes, Consultation: 12 minutes, Family sp4 Intervention: 12 minutes. Total time: 60 minutes Signatures: Dispatcher [employer] Alyssa Calloway FNP-C FNP-Ckb Garcia, Cindy, RN RN Evita Evans RN RN lg3 Mandie Webber RN RN [facility] David Gaines MD MD sp4 Corrections: (The following items were deleted from the chart) 04:15 04:05 Telemetry/MedSurg (observation) sp4 cg 04:15 04:05 sp4 cg 06:44 04:[address] [facility] ER HOLD cg cg :44 04:15 ERHOLD- cg cg
[2024-11-22] MEDS ORDERED: ZOLPIDEM TARTRATE 5 MG TABLET PO PRN (04:24)
[2024-11-22] MEDS: D5.45NS W/KCL 20MEQ 1,000 ML IV SCH ×2 (04:24→10:00)
[2024-11-22] MEDS ORDERED: ONDANSETRON 4 MG/2 ML VIAL IV PRN (04:24)
[2024-11-22] MEDS ORDERED: ALBUTEROL 2.5 MG/3 ML NEB SOL NEB PRN (04:24)
[2024-11-22] MEDS ORDERED: ACETAMINOPHEN 325 MG TABLET PO PRN (04:24)
[2024-11-22] MEDS ORDERED: D5.45NS W/KCL 20MEQ 1,000 ML IV ONE (04:28)
--- NOTE | 2024-11-22 04:52 | RAD REPORT ---
EXAM DESCRIPTION: X-ray single view chest. CLINICAL HISTORY: 68 years Female, PALPITATIONS COMPARISON: Chest x-ray report from 06/04/2023. The images were unavailable for review. TECHNIQUE: Single portable x-ray view of the chest performed on 11/22/2024 at 1:23 AM FINDINGS: The lungs are well expanded and are clear. There is no evidence of a pneumothorax. The cardiac silhouette is normal in size and configuration. The mediastinal contours are normal. No acute osseous abnormality is identified. There are remote postsurgical changes of the right reed l head. No focal soft tissue abnormalities are seen. Lines and tubes: None. Free air: None identified, IMPRESSION: No evidence of acute intrathoracic disease. Electronically signed by: Kathie Sanchez DO 11/22/2024 02:42 AM CDT Due to temporary technical issues with the PACS/Lomography reporting system, reports are being dmitriy d by the in-house radiologist without review as a courtesy to ensure prompt reporting the interpreting radiologist is fully responsible for the content of the report. Transcribed Date/Time: 11/22/2024 4:52 AM
[2024-11-22] MEDS ORDERED: SPIRONOLACTONE 25 MG TABLET PO SCH (09:00)
--- NOTE | 2024-11-22 09:18 | P.HP ---
Patient History Date of Service: 11/22/24 Reason for admission: PALPITATIONS History of Present Illness: DEDE HAS HAD A FIB BEFORE. SHE WAS WELL CONTROLLED ON METOPROLOL UNTIL LAST NIGHT. SHE HAD RAPID FLUTTERING AND A FIB UP TO 150. SHE CAME TO ER AND WAS GIVEN DILT IV. I PUT HER ON SOTALOL PO THIS AM AND STOPPED METOPROLOL. SHE ALREADY HAS WATCHMAN PROCEDURE DONE. SHE IS STABLE. Allergies flaxseed Allergy (Verified 04/01/18 12:26) Anaphylaxis morphine Allergy (Verified 03/30/18 09:21) Itching PARLADEL Allergy (Uncoded 03/30/18 09:21) Anaphylaxis Home Medications: Spironolactone [Aldactone*] 25 mg PO DAILY 09/16/11 Cholecalciferol (Vitamin D3) [Vitamin D3] 1,000 unit PO DAILY 03/30/18 Cranberry 500 mg PO DAILY 03/30/18 Cyanocobalamin [Vitamin B-12] 1,000 mcg PO DAILY 03/30/18 Aspirin 81 mg PO DAILY 11/22/24 Gabapentin 300 mg PO TID 11/22/24 Metoprolol Tartrate 50 mg PO DAILY 11/22/24 OXcarbazepine [Oxcarbazepine] 150 mg PO BID 11/22/24 - Past Medical/Surgical History Has patient received pneumonia vaccine in the past: Yes Diabetic: No - Social History Smoking Status: Never smoker Alcohol use: No CD- Drugs: No Caffeine use: No Review of Systems 10-point ROS is otherwise unremarkable General: As per HPI Physical Examination - Vital Signs Temperature: 98.6 F Blood Pressure: 131/81 Pulse: 86 Respirations: 18 - Physical Exam General: Alert, In no apparent distress HEENT: Atraumatic, PERRLA, Mucous membr. moist/pink, EOMI, Sclerae nonicteric Neck: Supple, 2+ carotid pulse no bruit, No LAD, Without JVD or thyroid abnormality Respiratory: Clear to auscultation bilaterally, Normal air movement Cardiovascular: Irregular heart rate/rhythm Gastrointestinal: Normal bowel sounds, No tenderness Musculoskeletal: No tenderness Integumentary: No rashes Neurological: Normal gait, Normal speech, Normal strength at 5/5 x4 extr, Normal tone, Normal affect Lymphatics: No axilla or inguinal lymphadenopathy - Studies Laboratory Data (last 24 hrs) 11/22/24 11/22/2411/22/25 01:30 01:30 01:30 WBC 7.40 Hgb 14.0 Hct 42.5 Plt Count 239 PT 10.6 INR 0.94 Sodium 141 Potassium 3.3 L BUN 23 H Creatinine 1.03 H Glucose 109 H Magnesium 1.8 Total Bilirubin 0.3 AST 13 L ALT 19 Alkaline Phosphatase 75 Assessment and Plan - Problems (Diagnosis) (1) Rapid atrial fibrillation Current Visit: Yes Status: Acute Plan: RECURRENT. STARTED SOTALOL STOP METOP HAS WATCHMAN ALREADY. DR. KIRBY CONSULTED. STABLE. MAY GO HOME TOMORROW PM. - Advance Directives Does patient have a Living Will: No Does patient have a Durable POA for Healthcare: No
[2024-11-22] MEDS: SPIRONOLACTONE 25 MG TABLET PO SCH (09:39)
[2024-11-22] MEDS: ASPIRIN 81 MG CHEWABLE TABLET PO SCH (09:39)
[2024-11-22] MEDS: GABAPENTIN 300 MG CAP PO SCH (09:39)
[2024-11-22] MEDS: SOTALOL HCL 80 MG TAB PO SCH (09:39)
[2024-11-22 10:17] LABS: Anion Gap 8.0 mEq/L (5.0-15.0); BUN Blood Urea Nitrogen 19.0 mg/dL (7-18); Glucose Level 98.0 mg/dL (74-106); Magnesium 2.0 mg/dL (1.6-2.4); Potassium 4.0 mEq/L (3.5-5.1)
[2024-11-22 11:05] LABS: Urine Microscopic Reflex YN NO UMIC
--- NOTE | 2024-11-22 11:35 | P.CNS ---
Date of Consult: 11/22/24 Chief Complaint: PALPITATIONS History of Present Illness: Patient with PMH of atrial fibrillation, rate controlled on BB, presented with palpitations yesterday, was found in RVR, denies chest pain, no syncope, no breathing problems. Allergies flaxseed Allergy (Verified 04/01/18 12:26) Anaphylaxis morphine Allergy (Verified 03/30/18 09:21) Itching PARLADEL Allergy (Uncoded 03/30/18 09:21) Anaphylaxis Home medications list reviewed: Yes Home Medications: Spironolactone [Aldactone*] 25 mg PO DAILY 09/16/11 Cholecalciferol (Vitamin D3) [Vitamin D3] 1,000 unit PO DAILY 03/30/18 Cranberry 500 mg PO DAILY 03/30/18 Cyanocobalamin [Vitamin B-12] 1,000 mcg PO DAILY 03/30/18 Aspirin 81 mg PO DAILY 11/22/24 Gabapentin 300 mg PO TID 11/22/24 Metoprolol Tartrate 50 mg PO DAILY 11/22/24 OXcarbazepine [Oxcarbazepine] 150 mg PO BID 11/22/24 - Past Medical/Surgical History Diabetic: No - Social History Smoking Status: Never smoker Alcohol use: No CD- Drugs: No Caffeine use: No Review of Systems 10-point ROS is otherwise unremarkable Physical Examination Temp Pulse Resp BP Pulse Ox 98.6 F 76 17 106/61 99 11/22/24 09:17 11/22/24 09:18 11/22/24 09:18 11/22/24 09:18 11/22/24 08:00 General: Alert, In no apparent distress HEENT: Atraumatic, PERRLA, Mucous membr. moist/pink, EOMI, Sclerae nonicteric Neck: Supple, 2+ carotid pulse no bruit, No LAD, Without JVD or thyroid abnormality Respiratory: Clear to auscultation bilaterally, Normal air movement Cardiovascular: Normal S1 S2, Irregular heart rate/rhythm Gastrointestinal: Normal bowel sounds, No tenderness Musculoskeletal: No tenderness Integumentary: No rashes Neurological: Normal gait, Normal speech, Normal tone, Normal affect Lymphatics: No axilla or inguinal lymphadenopathy Laboratory Data (last 24 hrs) 11/22/24 11/22/24 11/22/24 01:30 01:30 01:30 WBC 7.40 Hgb 14.0 Hct 42.5 Plt Count 239 PT 10.6 INR 0.94 Sodium 141 Potassium 3.3 L BUN 23 H Creatinine 1.03 H Glucose 109 H Magnesium 1.8 Total Bilirubin 0.3 AST 13 L ALT 19 Alkaline Phosphatase 75 - Problems (1) HTN (hypertension) Current Visit: Yes Status: Acute Plan: continue aldactone 25 mg daily patient used to be on lopressor that is on hold now for sotalol initiation, continue to monitor. (2) Rapid atrial fibrillation Current Visit: Yes Status: Acute Plan: continue Sotalol 80 mg po BID Re start Eliquis 5 mg po BID although patient had watchman procedure, just in case patient need ZACK DCCV in am even if patient convert into sinus rhythm, would recommend eliquis for 1 month. NPO after midnight for possible ZACK DCCV in am
[2024-11-22] MEDS: APIXABAN 5 MG TABLET PO SCH (20:11)
[2024-11-22] MEDS ORDERED: METOPROLOL XL 25 MG TAB PO SCH (21:00)
[2024-11-23 04:52] VITALS: O2SAT 99; BMI 44.1
[2024-11-23 05:29] LABS: Anion Gap 5.3 mEq/L (5.0-15.0); BUN Blood Urea Nitrogen 22.0 mg/dL (7-18); Glucose Level 103.0 mg/dL (74-106); Potassium 4.3 mEq/L (3.5-5.1)
--- NOTE | 2024-11-23 11:26 | P.PN ---
Subjective Date of Service: 11/23/24 Chief Complaint: PALPITATIONS Subjective: No new changes, No C/O voiced, Tolerating diet, Ambulating, Improving Review of Systems 10-point ROS is otherwise unremarkable Physical Examination - Vital Signs Temperature: 97.8 F Blood Pressure: 105/62 Pulse: 59 Respirations: 18 Pulse Ox (%): 97 - Physical Exam General: Alert, In no apparent distress HEENT: Atraumatic, PERRLA, EOMI Neck: Supple, JVD not distended Respiratory: Clear to auscultation bilaterally, Normal air movement Cardiovascular: Regular rate/rhythm, Normal S1 S2 Gastrointestinal: Normal bowel sounds, No tenderness Musculoskeletal: No tenderness Integumentary: No rashes Neurological: Normal speech, Normal tone, Normal affect Lymphatics: No axilla or inguinal lymphadenopathy - Studies Medications List Reviewed: Yes Assessment And Plan - Current Problems (Diagnosis) (1) HTN (hypertension) Current Visit: Yes Status: Acute Plan: continue aldactone 25 mg daily patient used to be on lopressor that is on hold now for sotalol initiation, continue to monitor. (2) Rapid atrial fibrillation Current Visit: Yes Status: Acute Plan: Patient converted to sinus rhythm overnight continue Sotalol 80 mg po BID continue Eliquis 5 mg po BID although patient had watchman procedure, patient is s/p recent chemical cardioversion, would recommend eliquis for 1 month.
[2024-11-23 14:17] VITALS: BP 90/47; TEMP 98
--- NOTE | 2024-11-23 17:57 | P.DS ---
Admission Date: 11/22/24 Discharge Date: 11/23/24 Disposition: ROUTINE DISCHARGE Discharge Condition: FAIR Reason for Admission: PALPITATIONS - Problems (1) Rapid atrial fibrillation Current Visit: Yes Status: Acute Brief History of Present Illness: DEDE HAS HAD A FIB BEFORE. SHE WAS WELL CONTROLLED ON METOPROLOL UNTIL LAST NIGHT. SHE HAD RAPID FLUTTERING AND A FIB UP TO 150. SHE CAME TO ER AND WAS GIVEN DILT IV. I PUT HER ON SOTALOL PO THIS AM AND STOPPED METOPROLOL. SHE ALREADY HAS WATCHMAN PROCEDURE DONE. SHE IS STABLE. Hospital Course: DEDE HAS A FIB WITH RVR. CONVERTED TO SINUS ON SOTALOL. IT HAS BEEN 36 HOURS ALREADY, SHE IS STABLE. WILL DO EKG BEFORE OR AT VISIT AT OFFICE. SHE IS EAGER TO GO HOME. STOPPED METOPROLOL. Vital Signs/Physical Exam: Temp Pulse Resp BP Pulse Ox 98.0 F 70 18 90/47 L 97 11/23/24 12:00 11/23/24 12:00 11/23/24 12:00 11/23/24 12:00 11/23/24 12:00 Laboratory Data at Discharge: WBC 7.40 thou/uL (4.3-10.9) 11/22/24 01:30 Hgb 14.0 g/dL (12.0-15.0) 11/22/24 01:30 Hct 42.5 % (36.0-45.0) 11/22/24 01:30 Plt Count 239 thou/uL (152-406) 11/22/24 01:30 PT 10.6 SECONDS (10-13.0) 11/22/24 01:30 INR 0.94 11/22/24 01:30 Sodium 141 mEq/L (136-145) 11/23/24 04:55 Potassium 4.3 mEq/L (3.5-5.1) 11/23/24 04:55 BUN 22 mg/dL (7-18) H 11/23/24 04:55 Creatinine 1.10 mg/dL (0.55-1.02) H 11/23/24 04:55 Glucose 103 mg/dL (74-106) 11/23/24 04:55 Magnesium 2.0 mg/dL (1.6-2.4) 11/22/24 09:46 Total Bilirubin 0.3 mg/dL (0.2-1.0) 11/22/24 01:30 AST 13 U/L (15-37) L 11/22/24 01:30 ALT 19 U/L (13-56) 11/22/24 01:30 Alkaline Phosphatase 75 U/L (45-117) 11/22/24 01:30 Home Medications: Spironolactone [Aldactone*] 25 mg PO DAILY 09/16/11 Cholecalciferol (Vitamin D3) [Vitamin D3] 1,000 unit PO DAILY 03/30/18 Cranberry 500 mg PO DAILY 03/30/18 Cyanocobalamin [Vitamin B-12] 1,000 mcg PO DAILY 03/30/18 Aspirin 81 mg PO DAILY 11/22/24 Gabapentin 300 mg PO TID 11/22/24 Metoprolol Tartrate 50 mg PO DAILY 11/22/24 OXcarbazepine [Oxcarbazepine] 150 mg PO BID 11/22/24 Physician Discharge Instructions: PROBLEM: Afib GOAL: Clear understanding of disease process INSTRUCTIONS: Call 4th floor nurses station for any question at [phone] Return to ED/ call 911 for worsening symptoms Sotalol sent to pharmacy Stop metoprolol Keep spironolactone at 25mg daily as BP is low/normal. follow up in 1 week Diet: Heart healthy Activity: As tolerated Followup: Rosalio Levin MD [Primary Care Provider] - 1 Week
== END 2024-11-23 17:59 | disposition home or self-care (01) | DRG 310 ==
LOC: ER 00:50 → ERHOLD 03:56 → 4TH 07:12 → OBSVTOIN 09:15
PROVIDERS: ADMIT Internal Medicine; ATTEND Internal Medicine
DX: I48.91 Unspecified atrial fibrillation (principal); Z88.5 Allergy status to narcotic agent; Z88.8 Allergy status to other drugs, medicaments and biological substances; Z79.82 Long term (current) use of aspirin; Z79.899 Other long term (current) drug therapy; I10 Essential (primary) hypertension
CPT/HCPCS: 36415; 71045; 80048; 80076; 81003; 83735; 83880; 84484; 85025; 85610; 93005; 99285; G0378

== ENCOUNTER 2024-12-07 07:09 | Observation (INO) | payer OTHER ==
[2024-12-07] MEDS ORDERED: NA CHLORIDE 0.9% 1,000 ML ONE (07:50)
[2024-12-07] MEDS ORDERED: FAMOTIDINE 20 MG/2 ML VIAL IV ONE (07:50)
[2024-12-07] MEDS ORDERED: ONDANSETRON 4 MG/2 ML VIAL ONE (07:50)
[2024-12-07 08:08] LABS: Absolute Lymphocytes (CBC) 1.1 K/uL (0.7-4.9); Hematocrit 43.1 % (36.0-45.0); Hemoglobin 14.1 g/dL (12.0-15.0); MCH 27.0 pg (27.0-35.0); MCHC 32.6 g/dL (32.0-36.0); MCV 82.8 fL (80-100); MPV 9.3 fL (7.6-11.3); Nucleated RBC Absolute Count 0.0 (0-0); Nucleated Red Blood Cells % 0.1 % (0-0); RBC Red Blood Cell Count 5.21 M/uL (3.86-4.86); White Blood Count 7.70 thou/uL (4.3-10.9)
[2024-12-07 08:17] LABS: PT Prothrombin Time 14.2 SECONDS (10-13.0); Protime INR 1.27
[2024-12-07 08:31] LABS: ALT/SGPT 26.0 U/L (13-56); AST/SGOT 14.0 U/L (15-37); Albumin 3.7 g/dL (3.4-5.0); Albumin/Globulin Ratio 0.9 (1.1-1.8); Alkaline Phosphatase 67.0 U/L (45-117); Anion Gap 10.8 mEq/L (5.0-15.0); BUN Blood Urea Nitrogen 15.0 mg/dL (7-18); Bilirubin Indirect, Calculated 0.6 mg/dL (0.2-0.8); Globulin 3.9 g/dL (2.3-3.5); Glucose Level 107.0 mg/dL (74-106); Lipase 34.0 U/L (13-75); Magnesium 1.9 mg/dL (1.6-2.4); Potassium 3.8 mEq/L (3.5-5.1); Troponin High Sensitivity 5.1 pg/mL (<58.9)
--- NOTE | 2024-12-07 08:53 | ER ---
Nurse's Notes [facility] Name: Keyla Maravilla Age: 69 yrs Sex: Female : 1955 Arrival Date: 12/07/2024 Time: 07:09 Bed 13 Private MD: Diagnosis: Vomiting;Nausea with vomiting, unspecified;Weakness;Left sided colitis without complications Presentation: 12/07 07:23 Chief complaint: Patient states: N/V/D, headache x 2 days, Dr. Levin sent to ED. [facility] Coronavirus screen: Client presents with at least one sign or symptom that may indicate coronavirus-19. Ebola Screen: No symptoms or risks identified at this time. Initial Sepsis Screen: Does the patient meet any 2 criteria? No. Patient's initial sepsis screen is negative. Does the patient have a suspected source of infection? No. Patient's initial sepsis screen is negative. Risk Assessment: Do you want to hurt yourself or someone else? Patient reports no desire to harm self or others. Onset of symptoms was December 05, 2024. 07:23 Method Of Arrival: Ambulatory [facility] 07:23 Acuity: RC 3 [facility] Triage Assessment: 07:24 General: Appears in no apparent distress. uncomfortable, ill, well groomed, well jl7 developed, well nourished, Behavior is calm, cooperative, appropriate for age. Pain: Complains of pain in headache, intermittent abdominal cramps Pain currently is 3 out of 10 on a pain scale. GI: Reports diarrhea, nausea, vomiting. Historical: - Allergies: 07:24 Morphine; 7 07:24 Parlodel; jl7 - Home Meds: 07:24 sotalol 80 mg oral tablet [Active]; oxycarbazepine [Active]; Eliquis oral [Active]; jl7 gabapentin oral [Active]; Spironolactone Oral [Active]; - PMHx: 07:24 Atrial fibrillation; Hypertensive disorder; ULCER; hemicrania continua; jl7 - PSHx: 07:24 section; watchman (ULCE); Cholecystectomy; jl7 07:34 Appendectomy; iw - Immunization history:: Adult Immunizations unknown. - Infectious Disease History:: Denies. - Social history:: Smoking status: Patient denies any tobacco usage or history of. Screenin:47 [facility] ED Fall Risk Assessment (Adult) History of falling in the last 3 months, iw including since admission No falls in past 3 months (0 pts) Confusion or Disorientation No (0 pts) Intoxicated or Sedated No (0 pts) Impaired Gait No (0 pts) Mobility Assist Device Used No (0 pt) Altered Elimination No (0 pt) Score/Fall Risk Level 0 - 2 = Low Risk Oriented to surroundings, Maintained a safe environment. Abuse screen: Denies threats or abuse. Denies injuries from another. Nutritional screening: No deficits noted. Tuberculosis screening: No symptoms or risk factors identified. Assessment: 07:46 General: Appears in no apparent distress. Behavior is calm, cooperative. Pain: iw Complains of pain in head. Neuro: Level of Consciousness is awake, alert, obeys commands, Oriented to person, place, time, situation, Moves all extremities. Full function. Cardiovascular: Patient's skin is warm and dry. GI: Abdomen is non-distended, Reports diarrhea, nausea, vomiting. Derm: Skin is intact, is healthy with good turgor. Musculoskeletal: Range of motion: intact in all extremities. 09:00 Reassessment: Patient appears in no apparent distress at this time. Patient and/or iw family updated on plan of care and expected duration. Pain level reassessed. Patient is alert, oriented x 3, equal unlabored respirations, skin warm/dry/pink. 09:25 Reassessment: Patient appears in no apparent distress at this time. pt up to bathroom. iw Vital Signs: 07:23 BP 149 / 77; Pulse 58; Resp 17; Temp 98.6; Pulse Ox 100% ; Weight 112.94 kg; Height 5 jl7 ft. 3 in. ; Pain 3/10; 09:07 BP 120 / 73; Pulse 54; Resp 16; Pulse Ox 97% on R/A; iw 07:23 Body Mass Index 44.11 (112.94 kg, 160.02 cm) jl7 07:23 Pain Scale: Adult jl7 ED Course: 07:11 Patient arrived in ED. adrien 07:11 Alpesh Felix MD is Attending Physician. adrien 07:18 Elenita Astorga, RN is Primary Nurse. iw 07:24 Triage completed. jl7 07:24 Arm band placed on right wrist. jl7 07:47 Initial lab(s) drawn, by me, sent to lab. Inserted saline lock: 20 gauge in right iw antecubital area, using aseptic technique. Blood collected. Flushed with 10 mL NS. 08:00 CT Abd/Pelvis - Without Contrast In Process Unspecified. EDMS 08:25 XRAY Chest (1 view) In Process Unspecified. EDMS 08:51 Rosalio Levin MD is Hospitalizing Provider. adrien 09:08 Patient has correct armband on for positive identification. Bed in low position. Call iw light in reach. Side rails up X2. Adult w/ patient. Client placed on continuous cardiac and pulse oximetry monitoring. NIBP monitoring applied. cafeteria monitor on. Warm blanket given. 11:27 No provider procedures requiring assistance completed. Patient admitted, IV remains in iw place. Administered Medications: 08:11 Drug: Famotidine IVP 20 mg IVP once; dilute with 10 mL 0.9% NaCl; give over 2 minutes iw Route: IVP; Site: right antecubital; 09:14 Follow up: Response: No adverse reaction iw 08:11 Drug: Ondansetron IVP 8 mg IVP once; over 2 minutes Route: IVP; Site: right antecubital;iw 09:14 Follow up: Response: No adverse reaction iw 08:12 Drug: NS 0.9% IV 1000 ml IV at 1 bolus Per protocol; to be given as a bolus over 60 iw minutes Route: IV; Rate: 1 bolus; Site: right antecubital; 09:30 Follow up: IV Status: Completed infusion iw 12:53 Follow up: Response: No adverse reaction me1 10:00 Drug: Piperacillin-Tazobactam IVPB 3.375 grams IVPB once over 60 mins; (mix in NS 100 iw mL) Route: IVPB; Infused Over: 60 mins; Site: right antecubital; 12:53 Follow up: Response: No adverse reaction; IV Status: Completed infusion me1 Medication: 07:47 VIS not applicable for this client. iw Outcome: 08:52 Decision to Hospitalize by Provider. adrien 11:27 Admitted to Med/surg accompanied by tech, via stretcher, iw 11:27 Condition: good 11:27 Discharge instructions given to patient, family, Instructed on the need for admit, Demonstrated understanding of instructions, 11:28 Patient left the ED. bc6 Signatures: Dispatcher [employer] Alpesh Hewitt MD MD cha Williams, Irene, RN RN iw Ming West RN RN jl7 Malia Miller6 Isela Pereira RN RN me1
--- NOTE | 2024-12-07 08:53 | EDPHYS ---
Physician Documentation [facility] Name: Keyla Maravilla Age: 69 yrs Sex: Female : 1955 Arrival Date: 12/07/2024 Time: 07:09 Bed 13 Private MD: ED Physician Alpesh Felix HPI: 12/07 08:44 This 69 yrs old Female presents to ER via Ambulatory with complaints of adrien Nausea/Vomiting/Diarrhea. 08:44 The patient presents to the emergency department with nausea, vomiting, that is adrien intermittent. Onset: The symptoms/episode began/occurred 2 day(s) ago. Possible causes: unknown. The symptoms are aggravated by. Associated signs and symptoms: The patient has no apparent associated signs or symptoms. Severity of symptoms: At their worst the symptoms were moderate in the emergency department the symptoms are unchanged. The patient has experienced similar episodes in the past, a few times. Historical: - Allergies: 07:24 Morphine; jl7 07:24 Parlodel; jl7 - Home Meds: 07:24 sotalol 80 mg oral tablet [Active]; oxycarbazepine [Active]; Eliquis oral [Active]; jl7 gabapentin oral [Active]; Spironolactone Oral [Active]; - PMHx: 07:24 Atrial fibrillation; Hypertensive disorder; ULCER; hemicrania continua; jl7 - PSHx: 07:24 section; watchman (ULCE); Cholecystectomy; jl7 07:34 Appendectomy; iw - Immunization history:: Adult Immunizations unknown. - Infectious Disease History:: Denies. - Social history:: Smoking status: Patient denies any tobacco usage or history of. ROS: 08:45 Constitutional: Negative for fever, chills, and weight loss, Eyes: Negative for injury, adrien pain, redness, and discharge, ENT: Negative for injury, pain, and discharge, Neck: Negative for injury, pain, and swelling, Cardiovascular: Negative for chest pain, palpitations, and edema, Respiratory: Negative for shortness of breath, cough, wheezing, and pleuritic chest pain, Back: Negative for injury and pain, : Negative for injury, bleeding, discharge, and swelling, MS/Extremity: Negative for injury and deformity, Skin: Negative for injury, rash, and discoloration, Neuro: Negative for headache, weakness, numbness, tingling, and seizure, Psych: Negative for depression, anxiety, suicide ideation, homicidal ideation, and hallucinations, Allergy/Immunology: Negative for hives, rash, and allergies, Endocrine: Negative for neck swelling, polydipsia, polyuria, polyphagia, and marked weight changes, Hematologic/Lymphatic: Negative for swollen nodes, abnormal bleeding, and unusual bruising, 08:45 Abdomen/GI: Positive for abdominal pain, nausea and vomiting, of the right upper quadrant, left upper quadrant, right lower quadrant and left lower quadrant, Exam: 08:49 Constitutional: This is a well developed, well nourished patient who is awake, alert, adrien and in no acute distress. Head/Face: Normocephalic, atraumatic. Eyes: Pupils equal round and reactive to light, extra-ocular motions intact. Lids and lashes normal. Conjunctiva and sclera are non-icteric and not injected. Cornea within normal limits. Periorbital areas with no swelling, redness, or edema. ENT: Nares patent. No nasal discharge, no septal abnormalities noted. Tympanic membranes are normal and external auditory canals are clear. Oropharynx with no redness, swelling, or masses, exudates, or evidence of obstruction, uvula midline. Mucous membranes moist. Neck: Trachea midline, no thyromegaly or masses palpated, and no cervical lymphadenopathy. Supple, full range of motion without nuchal rigidity, or vertebral point tenderness. No Meningismus. Chest/axilla: Normal chest wall appearance and motion. Nontender with no deformity. No lesions are appreciated. Cardiovascular: Regular rate and rhythm with a normal S1 and S2. No gallops, murmurs, or rubs. Normal PMI, no JVD. No pulse deficits. Respiratory: Lungs have equal breath sounds bilaterally, clear to auscultation and percussion. No rales, rhonchi or wheezes noted. No increased work of breathing, no retractions or nasal flaring. Abdomen/GI: Soft, non-tender, with normal bowel sounds. No distension or tympany. No guarding or rebound. No evidence of tenderness throughout. Back: No spinal tenderness. No costovertebral tenderness. Full range of motion. Female : Normal external genitalia. Skin: Warm, dry with normal turgor. Normal color with no rashes, no lesions, and no evidence of cellulitis. MS/ Extremity: Pulses equal, no cyanosis. Neurovascular intact. Full, normal range of motion., bilateral aka Neuro: Awake and alert, GCS 15, oriented to person, place, time, and situation. Cranial nerves II-XII grossly intact. Motor strength 5/5 in all extremities. Sensory grossly intact. Cerebellar exam normal. Normal gait. Psych: Awake, alert, with orientation to person, place and time. Behavior, mood, and affect are within normal limits. 08:49 ECG was reviewed by the Attending Physician. Vital Signs: 07:23 BP 149 / 77; Pulse 58; Resp 17; Temp 98.6; Pulse Ox 100% ; Weight 112.94 kg; Height 5 jl7 ft. 3 in. ; Pain 3/10; 09:07 BP 120 / 73; Pulse 54; Resp 16; Pulse Ox 97% on R/A; iw 07:23 Body Mass Index 44.11 (112.94 kg, 160.02 cm) [facility] 07:23 Pain Scale: Adult [facility] MDM: 07:11 Medical Screening Exam initiated adrien 08:49 Differential diagnosis: Nonspecific abd pain, gastritis, pancreatitis, diverticulitis, adrien bowel obstruction, diverticulitis, gastritis, gastroesophageal reflux disease, GI Bleed, Irritable bowel syndrome, non-specific abd pain, pancreatitis, Peptic Ulcer Disease, Perf. Duodenal Ulcer, Pyelonephritis, Ureterolithiasis, urinary tract infection. Data reviewed: vital signs, nurses notes, lab test result(s), EKG, radiologic studies, CT scan, plain films. Consideration of Admission/Observation Patient was admitted/placed on observation. Escalation of care including admission/observation considered. I considered the following discharge prescriptions or medication management in the emergency department Medications were administered in the Emergency Department. See MAR. Independent interpretation of the following test(s) in the Emergency Department EKG: See my EKG interpretation above. Test considered but Not performed: Ultrasound no abd usg. Historians other than the Patient: Spouse/Significant Other: well informed. Care significantly affected by the following chronic conditions: Hypertension, Obesity, a fib, pud, hemicraina. 12/07 07:32 Order name: Basic Metabolic Panel [facility] 12/07 07:32 Order name: CBC with Diff; Complete Time: 08:43 [facility] 12/07 07:32 Order name: LFT's [facility] 12/07 07:32 Order name: Magnesium [facility] 12/07 07:32 Order name: NT PRO-BNP [facility] 12/07 07:32 Order name: PT-INR; Complete Time: 08:43 [facility] 12/07 07:32 Order name: Troponin HS [facility] 12/07 07:32 Order name: Lipase [facility] 12/07 07:32 Order name: UA Rfx [place] Cult if indicated [facility] 12/07 07:32 Order name: XRAY Chest (1 view); Complete Time: 09:22 [facility] 12/07 07:32 Order name: CT Abd/Pelvis - Without Contrast; Complete Time: 09:22 [facility] 12/07 07:32 Order name: Cardiac monitoring; Complete Time: 08:08 [facility] 12/07 07:32 Order name: EKG - Nurse/Tech; Complete Time: 08:08 [facility] 12/07 07:32 Order name: IV Saline Lock; Complete Time: 07:47 [facility] 12/07 07:32 Order name: Labs collected and sent; Complete Time: 07:47 [facility] 12/07 07:32 Order name: O2 Per Protocol; Complete Time: 07:47 [facility] 12/07 07:32 Order name: O2 Sat Monitoring; Complete Time: 07:47 [facility] EC:49 Rate is 54 beats/min. Rhythm is regular. QRS [place] is Normal. TN interval is normal. QRS adrien interval is normal. QT interval is normal. No Q waves. T waves are Normal. No ST changes noted. Clinical impression: NSR w/ Non-specific ST/T Changes and No evidence of ischemia. Interpreted by me. Reviewed by me. Administered Medications: 08:11 Drug: Famotidine IVP 20 mg IVP once; dilute with 10 mL 0.9% NaCl; give over 2 minutes iw Route: IVP; Site: right antecubital; 09:14 Follow up: Response: No adverse reaction iw 08:11 Drug: Ondansetron IVP 8 mg IVP once; over 2 minutes Route: IVP; Site: right antecubital;iw 09:14 Follow up: Response: No adverse reaction iw 08:12 Drug: NS 0.9% IV 1000 ml IV at 1 bolus Per protocol; to be given as a bolus over 60 iw minutes Route: IV; Rate: 1 bolus; Site: right antecubital; 09:30 Follow up: IV Status: Completed infusion iw 12:53 Follow up: Response: No adverse reaction me1 10:00 Drug: Piperacillin-Tazobactam IVPB 3.375 grams IVPB once over 60 mins; (mix in NS 100 iw mL) Route: IVPB; Infused Over: 60 mins; Site: right antecubital; 12:53 Follow up: Response: No adverse reaction; IV Status: Completed infusion me1 Disposition Summary: 12/07/24 08:52 Hospitalization Ordered Notes: Hospitalization Status: Observation adrien Provider: Rosalio Levin cha Location: Telemetry/MedSurg (observation) adrien Condition: Fair adrien Problem: new adrien Symptoms: have improved adrien Bed/Room Type: Standard adrien Room Assignment: 207(12/07/24 10:16) bd Diagnosis - Vomiting adrien - Nausea with vomiting, unspecified adrien - Weakness adrien - Left sided colitis without complications adrien Forms: - Medication Reconciliation Form adrien - SBAR form adrien - Leadership Thank You Letter adrien Signatures: Dispatcher [employer] EDMS Bruna Dawn Corey, MD MD cha Williams, Irene RN RN Ming West RN RN jl7 Isela Pereira RN me1 Corrections: (The following items were deleted from the chart) 07:33 07:33 Abdomen Pelvis Wo Con+CT.RAD.BRZ ordered. EDMS EDMS 09:41 08:52 adrien bd 09:54 09:41 406 bd bd 10:16 09:54 bd bd
--- NOTE | 2024-12-07 08:55 | RAD REPORT ---
EXAMINATION: CT Abdomen Pelvis Wo Contrast CLINICAL INDICATION: Female, 69 years old. ABD PAIN TECHNIQUE: CT abdomen and pelvis was performed, without IV contrast, as per department protocol. Axia l, sagittal and coronal reconstructions were obtained. One or more of the following dose reduction techniques were used: Automated exposure control, adjustment of the mA and kV according to the patien t size, and iterative reconstruction. Unless otherwise specified, incidental findings do not require dedicated imaging follow-up. COMPARISON: 06/04/2023 FINDINGS: The lack of intravenous contrast limits the sensitivity of this exam for evaluation of solid visceral organs, vascular structures, and retroperitoneum. LOWER CHEST: The visualized lung bases are clear. LIVER: Normal in size and contour. No focal lesion. BILIARY SYSTEM: Status post cholecystectomy. SPLEEN: Normal size. No focal lesion. PANCREAS: No mass, ductal dilation, or dao-pancreatic fluid. ADRENALS: Normal; no mass. KIDNEYS AND URETERS: Normal size and contour. Bilateral parapelvic fluid density cysts, stable. No hy dronephrosis. URINARY BLADDER: Decompressed limiting evaluation. GASTROINTESTINAL TRACT: Mild segmental fat stranding along the adventitia of the descending and sigmo id colon. Colonic diverticulosis without evidence of acute diverticulitis. Trace free fluid in the pelvis, nonspecific, and could be physiologic. No evidence of bowel obstruction, free air or abscess. APPENDIX: Appendix surgically absent. LYMPH NODES: No lymphadenopathy. MUSCULOSKELETAL: No acute or suspicious osseous abnormality. ADDITIONAL FINDINGS: None. IMPRESSION: Mild segmental adventitial fat stranding along the descending and sigmoid colon, most suggestive of i nfectious or inflammatory colitis. Distal diverticulosis without evidence of acute diverticulitis.
--- NOTE | 2024-12-07 09:02 | RAD REPORT ---
EXAMINATION: ONE VIEW CHEST XR CLINICAL INDICATION: Female, 69 years old.,COUGH TECHNIQUE: Frontal chest projection is submitted. Examination is limited by patient positioning and t echnique. COMPARISON: 11/22/2024 FINDINGS: The lungs are well inflated and clear. No pneumothorax or sizable effusion. The heart is normal in s ize. Mediastinal contours are unchanged with tortuosity of the thoracic aorta. IMPRESSION: No acute intrathoracic abnormalities.
[2024-12-07] MEDS ORDERED: NA CHLORIDE 0.9% 100 ML ONE (09:42)
[2024-12-07] MEDS ORDERED: PIPERACIL/TAZO 3.375 GM VIAL IV ONE (09:43)
[2024-12-07 10:19] LABS: Sqamous Epithelial <5 /HPF (None Seen); Urine Culture Reflex Order REFLEXED; Urine Microscopic Reflex YN ORDER UMIC
[2024-12-07 10:19] LABS: NT PRO-BNP 372.0 pg/mL (<125)
[2024-12-07] MEDS ORDERED: ONDANSETRON 4 MG/2 ML VIAL IV PRN (11:57)
[2024-12-07] MEDS ORDERED: ACETAMINOPHEN 325 MG TABLET PO PRN (11:57)
[2024-12-07 12:01] VITALS: BMI 43.4
[2024-12-07] MEDS: NA CHLORIDE 0.9% 1,000 ML IV SCH (12:16)
[2024-12-07] MEDS: PIPER TAZO 3.375 GM in NA CHLORIDE 0.9% 100 ML IV SCH (17:15)
[2024-12-07] MEDS ORDERED: HOME MED 1 EA UNK (Ondansetron [Ondansetron Odt] 8 MG Tab.Rapdis) PO PRN (18:16)
--- NOTE | 2024-12-07 18:29 | P.SSS ---
Patient History Date of Service: 12/07/24 Reason for admission: NAUSEA AND VOMITING History of Present Illness: KHOA HAS HAD A FIB , RECENT CONVERSION, WATCHMAN A FEW WEEKS AGO, SHE IS TO BE ON ELIQUIS FOR 1 MTH. SHE COMES WITH TWO DAYS OF VOMITING. CALLED THIS AM. SHE IS BETTER, SOME HEAVING NOW. SHE IS ABLE TO TOLERATE ZOFRAN, CLEAR LIQUIDS. SHE WILL BE ABLE TO GO HOME IN AM. CT SHOWS COLITIS FROM VIRAL INFECTION. SHE SHOWS MILD DEHYDRATION. Allergies flaxseed Allergy (Verified 04/01/18 12:26) Anaphylaxis morphine Allergy (Verified 03/30/18 09:21) Itching PARLADEL Allergy (Uncoded 03/30/18 09:21) Anaphylaxis Home medications list reviewed: Yes Home Medications: Spironolactone [Aldactone*] 25 mg PO DAILY 09/16/11 Gabapentin 300 mg PO TID 11/22/24 OXcarbazepine [Oxcarbazepine] 150 mg PO BEDTIME 11/22/24 Apixaban [Eliquis] 5 mg PO BID 12/07/24 Ondansetron [Ondansetron Odt] 8 mg PO Q12H PRN 12/07/24 Sotalol HCl [Sotalol] 80 mg PO BID 12/07/24 - Past Medical/Surgical History Has patient received pneumonia vaccine in the past: Yes Diabetic: No - Social History Smoking Status: Never smoker Alcohol use: No CD- Drugs: No Caffeine use: No Place of Residence: Home Review of Systems 10-point ROS is otherwise unremarkable General: Weakness, As per HPI Physical Examination - Vital Signs Temperature: 98.1 F Blood Pressure: 132/63 Pulse: 53 Respirations: 18 Pulse Ox (%): 96 - Physical Exam General: Oriented x3, Mild distress, Obese HEENT: Atraumatic, PERRLA, Mucous membr. moist/pink, EOMI, Sclerae nonicteric Neck: Supple, 2+ carotid pulse no bruit, No LAD, Without JVD or thyroid abnormality Respiratory: Clear to auscultation bilaterally, Normal air movement Cardiovascular: Regular rate/rhythm, Normal S1 S2 Gastrointestinal: Normal bowel sounds, No tenderness Musculoskeletal: No tenderness Integumentary: No rashes Neurological: Normal gait, Normal speech, Normal strength at 5/5 x4 extr, Normal tone, Normal affect Lymphatics: No axilla or inguinal lymphadenopathy - Studies Laboratory Data (last 24 hrs) 12/07/24 12/07/24 12/07/24 07:40 07:40 07:40 WBC 7.70 Hgb 14.1 Hct 43.1 Plt Count 237 PT 14.2 H INR 1.27 Sodium 140 Potassium 3.8 BUN 15 Creatinine 1.40 H Glucose 107 H Magnesium 1.9 Total Bilirubin 0.8 AST 14 L ALT 26 Alkaline Phosphatase 67 Lipase 34 - Diagnosis (Problem(s)) (1) Viral gastritis Current Visit: Yes Status: Acute Plan: SHE SHOULD IMPROVE IGNORE THE UA SHE HAS NO UTI SS. URINE WAS COLLECTED IN ER THAT WAS NOT [facility]. (2) Occipital neuralgia Current Visit: Yes Status: Chronic Plan: ONLY MED THAT WORKED WAS TRILEPTAL. SHE HAS BEEN TO ER THREE TIMES BEFORE SHE CAME TO SEE ME. I TRIED TRILEPTAL AND THAT WORKED GREAT. (3) History of atrial fibrillation Current Visit: Yes Status: Chronic Plan: MANAGED BY DR. ZEE AND DR. HOOKS. AFTER A MONTH SHE WILL GET OFF ELIQUIS SHE HAS WATCHMAN ALREADY. - Disposition Disposition: ROUTINE DISCHARGE
[2024-12-07] MEDS: FAMOTIDINE 20 MG/2 ML VIAL IV SCH (20:07)
[2024-12-07] MEDS: APIXABAN 5 MG TABLET PO SCH (20:07)
[2024-12-07] MEDS: GABAPENTIN 300 MG CAP PO SCH (20:07)
[2024-12-08 00:31] VITALS: O2SAT 95
[2024-12-08 05:16] LABS: Absolute Lymphocytes (CBC) 1.8 K/uL (0.7-4.9); Hematocrit 34.7 % (36.0-45.0); Hemoglobin 11.5 g/dL (12.0-15.0); MCH 27.3 pg (27.0-35.0); MCHC 33.3 g/dL (32.0-36.0); MCV 82.1 fL (80-100); MPV 8.7 fL (7.6-11.3); Nucleated RBC Absolute Count 0.0 (0-0); Nucleated Red Blood Cells % 0.1 % (0-0); RBC Red Blood Cell Count 4.22 M/uL (3.86-4.86); White Blood Count 5.40 thou/uL (4.3-10.9)
[2024-12-08 05:33] LABS: ALT/SGPT 20 U/L (13-56); Albumin 3.0 g/dL (3.4-5.0); Albumin/Globulin Ratio 1.1 (1.1-1.8); Alkaline Phosphatase 54 U/L (45-117); Anion Gap 8.5 mEq/L (5.0-15.0); BUN Blood Urea Nitrogen 14 mg/dL (7-18); Bilirubin Indirect, Calculated 0.6 mg/dL (0.2-0.8); Globulin 2.7 g/dL (2.3-3.5); Glucose Level 85 mg/dL (74-106); Lipase 37 U/L (13-75); Potassium 3.5 mEq/L (3.5-5.1)
[2024-12-08 05:38] LABS: AST/SGOT < 10 U/L (15-37)
[2024-12-08] MEDS: ONDANSETRON 4 MG (ODT) TAB PO PRN (07:12)
[2024-12-08 09:02] VITALS: BP 136/61; TEMP 98
== END 2024-12-08 09:31 | disposition home or self-care (01) ==
LOC: ER 07:09 → ERHOLD 09:33 → 2ND 10:30
PROVIDERS: ADMIT Internal Medicine; ATTEND Internal Medicine
DX: A08.4 Viral intestinal infection, unspecified (principal); R11.2 Nausea with vomiting, unspecified; K52.9 Noninfective gastroenteritis and colitis, unspecified; M54.81 Occipital neuralgia; I48.11 Longstanding persistent atrial fibrillation; R53.1 Weakness; Z79.01 Long term (current) use of anticoagulants; Z88.5 Allergy status to narcotic agent
CPT/HCPCS: 36415; 71045; 74176; 80048; 80076; 81001; 83690; 83735; 83880; 84484; 85025; 85610; 87086; 87088; 93005; 96361; 96365; 96366; 96375; 99285; G0378; J2405; J2543; J7030; Q0162